=== PATIENT | male | born 1955 | race Caucasian/White ===

== ENCOUNTER → 2017-11-23 11:34 | Outpatient (CLI) | payer OTHER, SELFPAY | PROVIDERS: Family Provider Family Medicine; PCP Family Medicine; Visit Provider Family Medicine | DX: R20.2 Paresthesia of skin (principal); M25.529 Pain in unspecified elbow | CPT/HCPCS: 95886; 95909 ==

== ENCOUNTER → 2018-02-12 07:48 | Outpatient (CLI) | payer OTHER, SELFPAY ==
[2018-02-12 08:56] LABS: Hemoglobin A1C% w Est Avg Glu 6.1 % (4.0-6.0)
[2018-02-12 09:15] LABS: Creatinine Urine Random 142.1 mg/dL
[2018-02-12 09:18] LABS: Microalbumi Creatinin Ratio Ur 4.2 ug/mg CR (<30); Microalbumin Urine Random 0.6 mg/dL (0-1.6)
[2018-02-12 09:22] LABS: Alanine Aminotransferase 46 IU/L (21-72); Albumin 4.5 g/dL (3.5-5.0); Albumin Globulin Ratio 1.8 (1.0-2.8); Alkaline Phosphatase 62 U/L (38-126); Aspartate Aminotransferase 30 IU/L (17-59); Bilirubin Total 0.7 mg/dL (0.2-1.3); Blood Urea Nitrogen 25 mg/dL (9-20); Calcium 9.5 mg/dL (8.4-10.2); Carbon Dioxide 27 mmol/L (22-32); Chloride 104 mmol/L (98-107); Cholesterol 227 mg/dL (140-199); Estimated Glomerular Filt Rate > 60.0 mL/min (>60); Globulin 2.5 g/dL (1.7-4.1); Glucose 151 mg/dL (80-110); HDL Cholesterol 47 mg/dL (40-60); HEMOLYSIS < 15 (0-50); LDL Cholesterol Calculated 144 mg/dL (<100); Potassium 4.7 mmol/L (3.4-5.1); Sodium 140 mmol/L (137-145); Triglycerides 178 mg/dL (35-150)
== END ==
PROVIDERS: PCP Family Medicine; Visit Provider Family Medicine
DX: R73.09 Other abnormal glucose (principal)
CPT/HCPCS: 36415; 80053; 80061; 82043; 82570; 83036

== ENCOUNTER → 2018-02-20 12:38 | Outpatient (CLI) | payer OTHER, SELFPAY ==
--- NOTE | 2018-02-20 | DI.MRI.S_ITS ---
PROCEDURE: MR CERVICAL SPINE WO CON INDICATIONS: HAND NUMBNESS TECHNIQUE: Noncontrast sagittal T1 spin echo and T2 fast spin echo, sagittal STIR, foraminal oblique sagittal T2 fast spin echo, and axial gradient echo or T2 fast spin echo through the cervical spine. COMPARISON: [facility], CT, C-SPINE WITHOUT CONTRAST, 11/16/2012, 9:38. FINDINGS: Image quality: Diagnostic Alignment and Curvature: There is normal bony alignment. Bone Marrow: Marrow demonstrates normal overall signal. Spinal Cord: Visualized spinal cord has normal size and signal. No cerebellar tonsillar herniation. Paraspinous Soft Tissues: No paravertebral masses. Prevertebral soft tissues are normal in thickness. C2-C3: The disc height is well-preserved. Loss of disc signal is seen at this level. A mild degree of generalized disc osteophyte complex is seen. There is moderate left-sided and mild to moderate right-sided neural foraminal narrowing seen. Minimal central canal narrowing is seen. C3-C4: Minimal loss of disc height is seen. Loss of disc signal is seen. Mild to moderate disc osteophyte complex is seen, which is eccentric to the left. Uncovertebral joint hypertrophy is seen at this level. Mild facet joint hypertrophy is seen. There is moderate to severe left-sided and moderate right-sided neural foraminal narrowing seen. Moderate central canal narrowing is seen. C4-C5: There is minimal loss of disc height. Loss of disc signal is seen at this level. Mild to moderate disc osteophyte complex is seen. There is moderate bilateral neural foraminal narrowing seen, right greater than left. Moderate central canal narrowing is seen, with mass effect upon the ventral spinal cord. C5-C6: Moderate loss of disc height is seen. Loss of disc signal is seen. At least moderate disc osteophyte complex is seen. Uncovertebral joint hypertrophy is seen at this level. Mild facet joint hypertrophy is seen. There is moderate to severe bilateral neural foraminal narrowing seen, right worse than left. Moderate to severe central canal narrowing is seen, with associated mass effect upon the ventral spinal cord, as on series 5 image 28. C6-C7: Moderate loss of disc height is seen. Loss of disc signal is seen. At least moderate disc osteophyte complex is seen. Uncovertebral joint hypertrophy is seen at this level. Mild facet joint hypertrophy is seen. There is moderate to severe bilateral neural foraminal narrowing seen, left worse than right. Moderate to severe central canal narrowing is seen, with associated mass effect upon the ventral spinal cord. C7-T1: Mild loss of disc height is seen. Loss of disc signal is seen. Mild to moderate disc osteophyte complex is seen. There is moderate bilateral neural foraminal narrowing seen, right greater than left. Mild central canal narrowing is seen. IMPRESSION: Multiple levels of cervical spine degenerative change are seen, which are most prominent at the C5-C6 and the C6-C7 levels. Dictated by: Eulalio Kellogg M.D. on 02/20/2018 at 13:48 Approved by: Eulalio Kellogg M.D. on 02/20/2018 at 13:54
== END ==
PROVIDERS: Family Provider Family Medicine; PCP Family Medicine; Visit Provider Family Medicine
DX: M47.812 Spondylosis without myelopathy or radiculopathy, cervical region (principal); R20.0 Anesthesia of skin
CPT/HCPCS: 72141

== ENCOUNTER → 2018-03-07 10:37 | Outpatient (CLI) | payer OTHER, SELFPAY ==
--- NOTE | 2018-03-07 | DI.RAD.S_ITS ---
PROCEDURE: XR FINGER RT MIN 2V INDICATIONS: RIGHT FIRST FINGERT PAIN INDEX FINGER TECHNIQUE: AP hand, 2 views of the second finger(s) acquired. COMPARISON: None. FINDINGS: Bones: No fractures or dislocations. No suspicious bony lesions. Soft tissues: No suspicious soft tissue calcifications. IMPRESSION: No trauma found. 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 Dictated by: Theo Garcia M.D. on 03/07/2018 at 12:13 Approved by: Theo Garcia M.D. on 03/07/2018 at 12:13
== END ==
PROVIDERS: Family Provider Family Medicine; PCP Family Medicine; Visit Provider Family Medicine
DX: M79.644 Pain in right finger(s) (principal); M19.041 Primary osteoarthritis, right hand
CPT/HCPCS: 73140

== ENCOUNTER 2018-11-07 16:00 | Outpatient (RCR) | payer OTHER, SELFPAY ==
--- NOTE | 2018-09-04 16:45 | PT.OPPOC ---
Current Diagnoses Pain in unspecified joint (09/04/18) Stiffness of unspecified joint, not elsewhere classified (09/04/18) Spinal stenosis, cervical region (09/04/18) Radiculopathy, cervical region (09/04/18) Pain in arm, unspecified (09/04/18) Provider Visit Care Team Role Provider Type Dimitri Guerra MD Family Provider Physician Primary Care Provider Specialty: Family Practice Address: [facility] [place], [address] Email: Heath Spann MD Attending Provider Non-Staff Specialty: Neurology Address: [address] [place], [address] Email: Plan Of Care PT-OP-T Assessment and Plan Start: 09/06/18 12:47 Freq: Status: Active Protocol: Document 09/04/18 16:00 DCW (Rec: 09/06/18 13:17 DCW [id number]) Physical Therapy Assessment Rehab Potential Rehabilitation Potential Good Evaluation Complexity Number of Personal Factors/Comorbidities 1-2 Number of Body Systems Impaired 3 Clinical Presentation at Evaluation Stable Impairments Impairments Functional Mobility Pain Posture ROM Soft Tissue Mobility Tone Goals Three Impairment Pt has restricted pain-free cervical ROM Junior Underwriter Goal (LTG) Pt pain-free cervical ROM to improve to 70? with both flexion and extension, as well as 70? rotation bilaterally LTG Duration 11/05/18 Two Impairment Pt has been dropping tools at work Short Term Goal (STG) Pt to report no dropping of tools for two weeks at work due to decreased radicular symptoms STG Duration 10/05/18 One Impairment Pt does not have an appropriate home exercise program Short Term Goal (STG) Pt to be independent and compliant with an appropriate HEP STG Duration 10/05/18 Assessment Summary Assessment Pt presents with a largely negative cervical examination, no notable positive special tests, and unable to reproduce radicular symptoms in the clinic today. Pt did report relief from manual traction, and to exhibit tone through his upper trap and scalenes, R >L, as well as his suboccipitals, L>R. Pt should benefit from skilled therapy focusing on improving flexibility and decreasing muscle tone, as well as improving pain-free cervical ROM and manual traction Physical Therapy Plan Frequency and Duration Frequency of Treatment 2x/Week Duration of Treatment 10 weeks Plan of Care Start Date 09/04/18 Plan of Care End Date 11/13/18 Therapeutic Interventions Therapeutic Interventions Home Exercise Program Joint Mobilizations Manual Therapy Neuromuscular Re-education Patient/Caregiver Education Self-Care/Home Management Soft Tissue Mobilization Therapeutic Activities Therapeutic Exercises Modalities Cold Pack/Ice Massage Electric Stimulation Hot Packs Traction- Mechanical Ultrasound Next Visit Focus/Plan Next Note Type Treatment Note Next Visit Plan Stretching, STM, Manual traction, possible trial of mechanical traction Plan of Care Dates Plan of Care Start Date 09/04/18 Plan of Care End Date 11/13/18 Please Sign and Return: I have reviewed this Plan of Care and certify that the skilled therapy services above are required to meet the patient?s needs. Physician Signature Date Printed Name and Credentials Clinical Instructor Signature Printed Name and Credentials
--- NOTE | 2018-09-04 16:45 | PT.OIE ---
Current Diagnoses Pain in unspecified joint (09/04/18) Stiffness of unspecified joint, not elsewhere classified (09/04/18) Spinal stenosis, cervical region (09/04/18) Radiculopathy, cervical region (09/04/18) Pain in arm, unspecified (09/04/18) Provider Visit Care Team Role Provider Type Dimitri Guerra MD Family Provider Physician Primary Care Provider Specialty: Family Practice Address: [facility] [place], [address] Email: Heath Spann MD Attending Provider Non-Staff Specialty: Neurology Address: [address] [place], [address] Email: Physical Therapy Initial Evaluation PT-OP-A Visit Information Start: 09/06/18 12:47 Freq: Status: Active Protocol: Document 09/04/18 16:00 DCW (Rec: 09/06/18 13:17 DC [id number]) Out-Patient Physical Therapy Visit Information Visit Information Visit Type Initial Evaluation Visit Start Time 16:00 Visit Stop Time 16:45 Total Visit Minutes 45 Visit Number 1 Number of CONTRACT IMPLEMENTATION ANALYST Visits 0 Evaluation Information Evaluation Date 09/04/18 PT-OP-B Current Condition Start: 09/06/18 12:47 Freq: Status: Active Protocol: Document 09/04/18 16:00 DCW (Rec: 09/06/18 13:17 DC [id number]) Current Condition History of Current Condition Onset Date 1 year history Current Complaints neck and radicular left arm pain History of Current Condition Pt is a 62 year old male complaining of a one year history of cervical pain, with additional radicular pain down his arms bilaterally. Pt notes that he had been wearing a radio vest at work, which had a small plastic piece which put pressure on his neck right where his pain was, but after taking the plastic piece off, and then stopped wearing the vest entirely, there has still been no change . Pt notes the pain is entirely random, and it comes and goes with no apparent cause. Pt also reports there has been random spasm in his pecs, and he is unable to do anything about it other than just wait until it goes away. Pt does admit he has been dropping items more than normal, but is not actually limited with his job. Prior Treatments and Tests Cervical X-ray: Multiple levels of cervical spine degenerative change are seen, which are most prominent at the C5-C6 and the C6-C7 levels. per Eulailo Kellogg M.D. on 02/20 EMG: Normal study. Findings are not suggestive of a left median nerve lesion at the wrist, a left ulnar nerve lesion at the wrist or elbow no of an acute or chronic C5 through T1 motor nerve root lesion. per Kianna Comer , PT, DSc, ECS on 11/23/17 Treatment Goals Patient/Caregiver Goals Pt's goal is to reduce pain and limit radicular symptoms Prior Functional Status Baseline Function- ADL's Independent Baseline Function- Mobility Independent Current Functional Impairments (Reported) Functional Limitations- Other Increased dropping of items due to radicular symptoms PT-OP-C Subjective Start: 09/06/18 12:47 Freq: Status: Active Protocol: Document 09/04/18 16:00 DCW (Rec: 09/06/18 13:17 [facility] [id number]) OP-PT Pain Assessment Pain Assessment Grid Paper Pain Assessment Grid Completed Yes Location Cervical Spine Intensity 3 Scale Used Numeric (1 - 10) Radiating Location radicular pain into forearm PT-OP-E Functional Tests Start: 09/06/18 12:47 Freq: Status: Active Protocol: Document 09/04/18 16:00 DCW (Rec: 09/06/18 13:17 [facility] [id number]) Functional Tests Apley's Scratch Test Action 1- Left WNL Action 1- Right WNL Action 2- Left WNL Action 2- Right WNL Action 3- Left WNL Action 3- Right WNL PT-OP-F Manual Assessment Start: 09/06/18 12:47 Freq: Status: Active Protocol: Document 09/04/18 16:00 DCW (Rec: 09/06/18 13:17 [facility] [id number]) Manual Assessments Soft Tissue Assessment Soft Tissue Mobility Assessment Moderate tone and tenderness to palpation 2/4: Pain with wincing - left suboccipitals Severe tone and tenderness to palpation 3/4: Wincing and withdraw - right upper trap, right pec Joint Mobility Assessment Joint Mobility Assessment No increased complaints of tenderness or radicular pain with palpation of C3-T2 PT-OP-K Range of Motion Start: 09/06/18 12:47 Freq: Status: Active Protocol: Document 09/04/18 16:00 DCW (Rec: 09/06/18 13:17 [facility] [id number]) Cervical Spine Range of Motion Cervical Spine Active Degrees Testing Position Sitting Flexion 50 Extension 40 Rotation Left 60 Rotation Right 50 Lateral Flexion Left 30 Lateral Flexion Right 30 ROM Limitations Soft Tissue Tightness Pain Comments Pain at end-range of right rotation, right sidebending, and cervical extension Shoulder Goniometric Range of Motion Shoulder Right Active Shoulder ROM WFL Yes Left Active Shoulder ROM WFL Yes PT-OP-L Special Tests Start: 09/06/18 12:47 Freq: Status: Active Protocol: Document 09/04/18 16:00 DCW (Rec: 09/06/18 13:17 [facility] [id number]) Special Tests Cervical Spine Special Tests Upper Limb Tension Test Test Results Negative Traction Test Results Relieves pain Spurling's Test Test Results Negative Slump Test Results Negative Foraminal Compression Test Results Negative Alar Ligament Test Results Negative PT-OP-Q Treatments Start: 09/06/18 12:47 Freq: Status: Active Protocol: Document 09/04/18 16:00 DCW (Rec: 09/06/18 13:17 [facility] [id number]) Therapeutic Exercises Sitting Exercises Posterior Scalene Sitting Exercise Name Lateral flexion with cervical rotation (look down). Side bilateral Upper Trap Sitting Exercise Name Lateral flexion stretch Side bilateral PT-OP-T Assessment and Plan Start: 09/06/18 12:47 Freq: Status: Active Protocol: Document 09/04/18 16:00 DCW (Rec: 09/06/18 13:17 [facility] [id number]) Physical Therapy Assessment Rehab Potential Rehabilitation Potential Good Evaluation Complexity Number of Personal Factors/Comorbidities 1-2 Number of Body Systems Impaired 3 Clinical Presentation at Evaluation Stable Impairments Impairments Functional Mobility Pain Posture ROM Soft Tissue Mobility Tone Goals Three Impairment Pt has restricted pain-free cervical ROM Alf Goal (LTG) Pt pain-free cervical ROM to improve to 70? with both flexion and extension, as well as 70? rotation bilaterally LTG Duration 11/05/18 Two Impairment Pt has been dropping tools at work Short Term Goal (STG) Pt to report no dropping of tools for two weeks at work due to decreased radicular symptoms STG Duration 10/05/18 One Impairment Pt does not have an appropriate home exercise program Short Term Goal (STG) Pt to be independent and compliant with an appropriate HEP STG Duration 10/05/18 Assessment Summary Assessment Pt presents with a largely negative cervical examination, no notable positive special tests, and unable to reproduce radicular symptoms in the clinic today. Pt did report relief from manual traction, and to exhibit tone through his upper trap and scalenes, R >L, as well as his suboccipitals, L>R. Pt should benefit from skilled therapy focusing on improving flexibility and decreasing muscle tone, as well as improving pain-free cervical ROM and manual traction Physical Therapy Plan Frequency and Duration Frequency of Treatment 2x/Week Duration of Treatment 10 weeks Plan of Care Start Date 09/04/18 Plan of Care End Date 11/13/18 Therapeutic Interventions Therapeutic Interventions Home Exercise Program Joint Mobilizations Manual Therapy Neuromuscular Re-education Patient/Caregiver Education Self-Care/Home Management Soft Tissue Mobilization Therapeutic Activities Therapeutic Exercises Modalities Cold Pack/Ice Massage Electric Stimulation Hot Packs Traction- Mechanical Ultrasound Next Visit Focus/Plan Next Note Type Treatment Note Next Visit Plan Stretching, STM, Manual traction, possible trial of mechanical traction
--- NOTE | 2018-09-06 15:14 | PT.OTN ---
Current Diagnoses Pain in unspecified joint (09/06/18) Stiffness of unspecified joint, not elsewhere classified (09/06/18) Spinal stenosis, cervical region (09/06/18) Radiculopathy, cervical region (09/06/18) Pain in arm, unspecified (09/06/18) Physical Therapy Treatment Note PT-OP-A Visit Information Start: 09/06/18 12:47 Freq: Status: Active Protocol: Document 09/06/18 13:45 GGD (Rec: 09/06/18 15:14 GGD [id number]) Out-Patient Physical Therapy Visit Information Visit Information Visit Type Treatment Note Visit Start Time 13:45 Visit Stop Time 14:30 Total Visit Minutes 45 Visit Number 2 Number of RESTORATIVE CARE TECHNICIAN Visits 1 Evaluation Information Evaluation Date 09/04/18 PT-OP-B Current Condition Start: 09/06/18 12:47 Freq: Status: Active Protocol: Document 09/04/18 16:00 DCW (Rec: 09/06/18 13:17 DCW [id number]) Current Condition History of Current Condition Onset Date 1 year history Current Complaints neck and radicular left arm pain History of Current Condition Pt is a 62 year old male complaining of a one year history of cervical pain, with additional radicular pain down his arms bilaterally. Pt notes that he had been wearing a radio vest at work, which had a small plastic piece which put pressure on his neck right where his pain was, but after taking the plastic piece off, and then stopped wearing the vest entirely, there has still been no change . Pt notes the pain is entirely random, and it comes and goes with no apparent cause. Pt also reports there has been random spasm in his pecs, and he is unable to do anything about it other than just wait until it goes away. Pt does admit he has been dropping items more than normal, but is not actually limited with his job. Prior Treatments and Tests Cervical X-ray: Multiple levels of cervical spine degenerative change are seen, which are most prominent at the C5-C6 and the C6-C7 levels. per Eulalio Kellogg M.D. on 02/20 EMG: Normal study. Findings are not suggestive of a left median nerve lesion at the wrist, a left ulnar nerve lesion at the wrist or elbow no of an acute or chronic C5 through T1 motor nerve root lesion. per Kianna Comer , PT, DSc, ECS on 11/23/17 Treatment Goals Patient/Caregiver Goals Pt's goal is to reduce pain and limit radicular symptoms Prior Functional Status Baseline Function- ADL's Independent Baseline Function- Mobility Independent Current Functional Impairments (Reported) Functional Limitations- Other Increased dropping of items due to radicular symptoms PT-OP-C Subjective Start: 09/06/18 12:47 Freq: Status: Active Protocol: Document 09/06/18 13:45 GGD (Rec: 09/06/18 15:14 GGD [id number]) OP-PT Subjective Patient Comments Patient Comments PT states that he was sore after the last visit, but feels better today. PT-OP-E Functional Tests Start: 09/06/18 12:47 Freq: Status: Active Protocol: Document 09/04/18 16:00 DCW (Rec: 09/06/18 13:17 DCW [id number]) Functional Tests Apley's Scratch Test Action 1- Left WNL Action 1- Right WNL Action 2- Left WNL Action 2- Right WNL Action 3- Left WNL Action 3- Right WNL PT-OP-F Manual Assessment Start: 09/06/18 12:47 Freq: Status: Active Protocol: Document 09/04/18 16:00 DCW (Rec: 09/06/18 13:17 DCW [id number]) Manual Assessments Soft Tissue Assessment Soft Tissue Mobility Assessment Moderate tone and tenderness to palpation 2/4: Pain with wincing - left suboccipitals Severe tone and tenderness to palpation 3/4: Wincing and withdraw - right upper trap, right pec Joint Mobility Assessment Joint Mobility Assessment No increased complaints of tenderness or radicular pain with palpation of C3-T2 PT-OP-K Range of Motion Start: 09/06/18 12:47 Freq: Status: Active Protocol: Document 09/04/18 16:00 DCW (Rec: 09/06/18 13:17 DCW [id number]) Cervical Spine Range of Motion Cervical Spine Active Degrees Testing Position Sitting Flexion 50 Extension 40 Rotation Left 60 Rotation Right 50 Lateral Flexion Left 30 Lateral Flexion Right 30 ROM Limitations Soft Tissue Tightness Pain Comments Pain at end-range of right rotation, right sidebending, and cervical extension Shoulder Goniometric Range of Motion Shoulder Right Active Shoulder ROM WFL Yes Left Active Shoulder ROM WFL Yes PT-OP-L Special Tests Start: 09/06/18 12:47 Freq: Status: Active Protocol: Document 09/04/18 16:00 DCW (Rec: 09/06/18 13:17 DCW [id number]) Special Tests Cervical Spine Special Tests Upper Limb Tension Test Test Results Negative Traction Test Results Relieves pain Spurling's Test Test Results Negative Slump Test Results Negative Foraminal Compression Test Results Negative Alar Ligament Test Results Negative PT-OP-Q Treatments Start: 09/06/18 12:47 Freq: Status: Active Protocol: Document 09/06/18 13:45 GGD (Rec: 09/06/18 15:14 GGD [id number]) Therapeutic Exercises Sitting Exercises Posterior Scalene Sitting Exercise Name Lateral flexion with cervical rotation (look down). Side bilateral Upper Trap Sitting Exercise Name Lateral flexion stretch Side bilateral Manual Therapy Treatment Soft Tissue Mobilization UT, Lev scap, Body Location UT, lev scap, scalene Mobilization Type Myofascial Release Sustained Pressure Intensity/Depth Moderate Manual Traction C/S Body Position Hooklying Reps/Duration 5 PT-OP-R Modalities Start: 09/06/18 12:47 Freq: Status: Active Protocol: Document 09/06/18 13:45 GGD (Rec: 09/06/18 15:14 GGD [id number]) Spinal Traction Traction Treatment c/s Method Mechanical Patient Position Hooklying Force Applied (Pounds) 10 Duration of Treatment (Minutes) 10 Ultrasound Therapy Treatment UT Treatment Duration (minutes) 8 Patient Position Prone Coupling Medium Ultrasound Gel Applicator Size (cm2) 5 Frequency Setting (mHz) 1 Mode Setting Continuous Duty Cycle 100% Intensity Setting (w/cm2) 1.5 PT-OP-T Assessment and Plan Start: 09/06/18 12:47 Freq: Status: Active Protocol: Document 09/06/18 13:45 GGD (Rec: 09/06/18 15:14 GGD [id number]) Physical Therapy Assessment Assessment Summary Assessment Pt had decrease C/O numbness with traction. He need mod cues for stretching technique. He had mild tenderness with STM. Physical Therapy Plan Frequency and Duration Frequency of Treatment 2x/Week Duration of Treatment 10 weeks Plan of Care Start Date 09/04/18 Plan of Care End Date 11/13/18 Next Visit Focus/Plan Next Note Type Treatment Note Next Visit Plan Stretching, STM, Manual traction, asses tolerance to mechanical traction
--- NOTE | 2018-10-02 12:25 | PT.OTN ---
Current Diagnoses Pain in unspecified joint (10/02/18) Stiffness of unspecified joint, not elsewhere classified (10/02/18) Spinal stenosis, cervical region (10/02/18) Radiculopathy, cervical region (10/02/18) Pain in arm, unspecified (10/02/18) Physical Therapy Treatment Note PT-OP-A Visit Information Start: 09/06/18 12:47 Freq: Status: Active Protocol: Document 10/02/18 12:18 HH (Rec: 10/02/18 12:24 HH [email or web address]) Out-Patient Physical Therapy Visit Information Visit Information Visit Type Treatment Note Visit Start Time 10:42 Visit Stop Time 11:20 Total Visit Minutes 38 Visit Number 3 Number of FRONT OFFICE MANAGER Visits 0 PT-OP-B Current Condition Start: 09/06/18 12:47 Freq: Status: Active Protocol: Document 09/04/18 16:00 DCW (Rec: 09/06/18 13:17 DCW [id number]) Current Condition History of Current Condition Onset Date 1 year history Current Complaints neck and radicular left arm pain History of Current Condition Pt is a 62 year old male complaining of a one year history of cervical pain, with additional radicular pain down his arms bilaterally. Pt notes that he had been wearing a radio vest at work, which had a small plastic piece which put pressure on his neck right where his pain was, but after taking the plastic piece off, and then stopped wearing the vest entirely, there has still been no change . Pt notes the pain is entirely random, and it comes and goes with no apparent cause. Pt also reports there has been random spasm in his pecs, and he is unable to do anything about it other than just wait until it goes away. Pt does admit he has been dropping items more than normal, but is not actually limited with his job. Prior Treatments and Tests Cervical X-ray: Multiple levels of cervical spine degenerative change are seen, which are most prominent at the C5-C6 and the C6-C7 levels. per Eulalio Kellogg M.D. on 02/20 EMG: Normal study. Findings are not suggestive of a left median nerve lesion at the wrist, a left ulnar nerve lesion at the wrist or elbow no of an acute or chronic C5 through T1 motor nerve root lesion. per Kianna Comer , PT, DSc, ECS on 11/23/17 Treatment Goals Patient/Caregiver Goals Pt's goal is to reduce pain and limit radicular symptoms Prior Functional Status Baseline Function- ADL's Independent Baseline Function- Mobility Independent Current Functional Impairments (Reported) Functional Limitations- Other Increased dropping of items due to radicular symptoms PT-OP-C Subjective Start: 09/06/18 12:47 Freq: Status: Active Protocol: Document 10/02/18 12:24 HH (Rec: 10/02/18 12:25 HH [email or web address]) OP-PT Subjective Patient Comments Patient Comments I was in vacation for couple weeks. Im doing about the same but i did my ex occasionally. Patient Reported Progress Same PT-OP-E Functional Tests Start: 09/06/18 12:47 Freq: Status: Active Protocol: Document 09/04/18 16:00 DCW (Rec: 09/06/18 13:17 DCW [id number]) Functional Tests Apley's Scratch Test Action 1- Left WNL Action 1- Right WNL Action 2- Left WNL Action 2- Right WNL Action 3- Left WNL Action 3- Right WNL PT-OP-F Manual Assessment Start: 09/06/18 12:47 Freq: Status: Active Protocol: Document 09/04/18 16:00 DCW (Rec: 09/06/18 13:17 DCW [id number]) Manual Assessments Soft Tissue Assessment Soft Tissue Mobility Assessment Moderate tone and tenderness to palpation 2/4: Pain with wincing - left suboccipitals Severe tone and tenderness to palpation 3/4: Wincing and withdraw - right upper trap, right pec Joint Mobility Assessment Joint Mobility Assessment No increased complaints of tenderness or radicular pain with palpation of C3-T2 PT-OP-K Range of Motion Start: 09/06/18 12:47 Freq: Status: Active Protocol: Document 09/04/18 16:00 DCW (Rec: 09/06/18 13:17 DCW [id number]) Cervical Spine Range of Motion Cervical Spine Active Degrees Testing Position Sitting Flexion 50 Extension 40 Rotation Left 60 Rotation Right 50 Lateral Flexion Left 30 Lateral Flexion Right 30 ROM Limitations Soft Tissue Tightness Pain Comments Pain at end-range of right rotation, right sidebending, and cervical extension Shoulder Goniometric Range of Motion Shoulder Right Active Shoulder ROM WFL Yes Left Active Shoulder ROM WFL Yes PT-OP-L Special Tests Start: 09/06/18 12:47 Freq: Status: Active Protocol: Document 09/04/18 16:00 DCW (Rec: 09/06/18 13:17 DCW [id number]) Special Tests Cervical Spine Special Tests Upper Limb Tension Test Test Results Negative Traction Test Results Relieves pain Spurling's Test Test Results Negative Slump Test Results Negative Foraminal Compression Test Results Negative Alar Ligament Test Results Negative PT-OP-Q Treatments Start: 09/06/18 12:47 Freq: Status: Active Protocol: Document 10/02/18 12:18 HH (Rec: 10/02/18 12:24 HH [email or web address]) Therapeutic Exercises Supine Exercises supine t/s extension Side bilateral Comments foam roll extension Prone Exercises prayer stretch Prone Exercise Name elbow on table in quadruped position Equipment Used table Comments t/s mobilization in extension and shd flexion Sitting Exercises self cervical PROM Sitting Exercise Name cervical rotation Side bilateral Equipment Used towel Reps/Minutes 5 mins [place] pulleys Side bilateral Reps/Minutes 5 mins Comments for full shd ROM Posterior Scalene Sitting Exercise Name Lateral flexion with cervical rotation (look down). Side bilateral Upper Trap Sitting Exercise Name Lateral flexion stretch Side bilateral Manual Therapy Treatment Soft Tissue Mobilization UT, Lev scap, Body Location UT, lev scap, scalene Mobilization Type Myofascial Release Sustained Pressure Intensity/Depth Moderate Manual Traction C/S Body Position Hooklying Reps/Duration 5 PT-OP-R Modalities Start: 09/06/18 12:47 Freq: Status: Active Protocol: Document 09/06/18 13:45 GGD (Rec: 09/06/18 15:14 GGD [email or web address]) Spinal Traction Traction Treatment c/s Method Mechanical Patient Position Hooklying Force Applied (Pounds) 10 Duration of Treatment (Minutes) 10 Ultrasound Therapy Treatment UT Treatment Duration (minutes) 8 Patient Position Prone Coupling Medium Ultrasound Gel Applicator Size (cm2) 5 Frequency Setting (mHz) 1 Mode Setting Continuous Duty Cycle 100% Intensity Setting (w/cm2) 1.5 PT-OP-T Assessment and Plan Start: 09/06/18 12:47 Freq: Status: Active Protocol: Document 10/02/18 12:18 HH (Rec: 08/20/19 12:24 HH [email or web address]) Physical Therapy Assessment Assessment Summary Assessment Pt had decrease C/O numbness with traction. Pt also reports decreased pinching pain at T1 /T2 during cervical extension after T/S mob in extension. Pt education on using proper pillow for sleep. Physical Therapy Plan Next Visit Focus/Plan Next Note Type Treatment Note Next Visit Plan review home ex. Stretching, STM, Manual traction, asses tolerance to mechanical traction t/s spine extension
--- NOTE | 2018-10-04 16:00 | PT.OTN ---
Current Diagnoses Pain in unspecified joint (10/04/18) Stiffness of unspecified joint, not elsewhere classified (10/04/18) Spinal stenosis, cervical region (10/04/18) Radiculopathy, cervical region (10/04/18) Pain in arm, unspecified (10/04/18) Physical Therapy Treatment Note PT-OP-A Visit Information Start: 09/06/18 12:47 Freq: Status: Active Protocol: Document 10/04/18 13:03 HH (Rec: 10/04/18 15:59 HH [email or web address]) Out-Patient Physical Therapy Visit Information Visit Information Visit Type Treatment Note Visit Start Time 13:03 Visit Stop Time 13:48 Total Visit Minutes 45 Visit Number 4 Number of INCLUSION SPECIAL EDUCATOR Visits 0 PT-OP-B Current Condition Start: 09/06/18 12:47 Freq: Status: Active Protocol: Document 09/04/18 16:00 DCW (Rec: 09/06/18 13:17 DCW [id number]) Current Condition History of Current Condition Onset Date 1 year history Current Complaints neck and radicular left arm pain History of Current Condition Pt is a 62 year old male complaining of a one year history of cervical pain, with additional radicular pain down his arms bilaterally. Pt notes that he had been wearing a radio vest at work, which had a small plastic piece which put pressure on his neck right where his pain was, but after taking the plastic piece off, and then stopped wearing the vest entirely, there has still been no change . Pt notes the pain is entirely random, and it comes and goes with no apparent cause. Pt also reports there has been random spasm in his pecs, and he is unable to do anything about it other than just wait until it goes away. Pt does admit he has been dropping items more than normal, but is not actually limited with his job. Prior Treatments and Tests Cervical X-ray: Multiple levels of cervical spine degenerative change are seen, which are most prominent at the C5-C6 and the C6-C7 levels. per Eulalio Kellogg M.D. on 02/20 EMG: Normal study. Findings are not suggestive of a left median nerve lesion at the wrist, a left ulnar nerve lesion at the wrist or elbow no of an acute or chronic C5 through T1 motor nerve root lesion. per Kianna Comer , PT, DSc, ECS on 11/23/17 Treatment Goals Patient/Caregiver Goals Pt's goal is to reduce pain and limit radicular symptoms Prior Functional Status Baseline Function- ADL's Independent Baseline Function- Mobility Independent Current Functional Impairments (Reported) Functional Limitations- Other Increased dropping of items due to radicular symptoms PT-OP-C Subjective Start: 09/06/18 12:47 Freq: Status: Active Protocol: Document 10/04/18 13:03 HH (Rec: 10/04/18 15:59 HH [email or web address]) OP-PT Subjective Patient Comments Patient Comments My arm and back felt quite stretch out after last session . But i dont have any neck pain now. Patient Reported Progress Improving PT-OP-E Functional Tests Start: 09/06/18 12:47 Freq: Status: Active Protocol: Document 09/04/18 16:00 DCW (Rec: 09/06/18 13:17 DCW [id number]) Functional Tests Apley's Scratch Test Action 1- Left WNL Action 1- Right WNL Action 2- Left WNL Action 2- Right WNL Action 3- Left WNL Action 3- Right WNL PT-OP-F Manual Assessment Start: 09/06/18 12:47 Freq: Status: Active Protocol: Document 09/04/18 16:00 DCW (Rec: 09/06/18 13:17 DCW [id number]) Manual Assessments Soft Tissue Assessment Soft Tissue Mobility Assessment Moderate tone and tenderness to palpation 2/4: Pain with wincing - left suboccipitals Severe tone and tenderness to palpation 3/4: Wincing and withdraw - right upper trap, right pec Joint Mobility Assessment Joint Mobility Assessment No increased complaints of tenderness or radicular pain with palpation of C3-T2 PT-OP-K Range of Motion Start: 09/06/18 12:47 Freq: Status: Active Protocol: Document 09/04/18 16:00 DCW (Rec: 09/06/18 13:17 DCW [id number]) Cervical Spine Range of Motion Cervical Spine Active Degrees Testing Position Sitting Flexion 50 Extension 40 Rotation Left 60 Rotation Right 50 Lateral Flexion Left 30 Lateral Flexion Right 30 ROM Limitations Soft Tissue Tightness Pain Comments Pain at end-range of right rotation, right sidebending, and cervical extension Shoulder Goniometric Range of Motion Shoulder Right Active Shoulder ROM WFL Yes Left Active Shoulder ROM WFL Yes PT-OP-L Special Tests Start: 09/06/18 12:47 Freq: Status: Active Protocol: Document 09/04/18 16:00 DCW (Rec: 09/06/18 13:17 DCW [id number]) Special Tests Cervical Spine Special Tests Upper Limb Tension Test Test Results Negative Traction Test Results Relieves pain Spurling's Test Test Results Negative Slump Test Results Negative Foraminal Compression Test Results Negative Alar Ligament Test Results Negative PT-OP-Q Treatments Start: 09/06/18 12:47 Freq: Status: Active Protocol: Document 10/04/18 13:03 HH (Rec: 10/04/18 15:59 HH [email or web address]) Therapeutic Exercises Prone Exercises prayer stretch Prone Exercise Name elbow on table in quadruped position Equipment Used table Reps/Minutes 10 x2 Comments t/s mobilization in extension and shd flexion Sidelying Exercises open book Side bilateral Comments cues on t/s rotation Sitting Exercises [place] pulleys Side bilateral Reps/Minutes 5 mins Comments for full shd ROM FL and ABD Standing Exercises wall [place] Side bilateral Reps/Minutes 8 x 2 Comments full shd AROM, next to wall shoulder ext Side bilateral Equipment Used PVC pipe Reps/Minutes 10 x2 shoulder press Side bilateral Equipment Used PVC pipe Reps/Minutes 10 x2 around the [place] Side bilateral Equipment Used PVC pipe Reps/Minutes 10 x 2 Comments clockwise and anticlockwise Manual Therapy Treatment Soft Tissue Mobilization UT, Lev scap, Body Location UT, lev scap, scalene Mobilization Type Myofascial Release Sustained Pressure Intensity/Depth Moderate Comments with R cervical rotation Nerve Glides median nerve glide Body Position Standing Reps/Duration 10secs x 5 Comments with cervical lateral flexion for HEP as well PT-OP-R Modalities Start: 09/06/18 12:47 Freq: Status: Active Protocol: Document 09/06/18 13:45 GGD (Rec: 09/06/18 15:14 GGD [email or web address]) Spinal Traction Traction Treatment c/s Method Mechanical Patient Position Hooklying Force Applied (Pounds) 10 Duration of Treatment (Minutes) 10 Ultrasound Therapy Treatment UT Treatment Duration (minutes) 8 Patient Position Prone Coupling Medium Ultrasound Gel Applicator Size (cm2) 5 Frequency Setting (mHz) 1 Mode Setting Continuous Duty Cycle 100% Intensity Setting (w/cm2) 1.5 PT-OP-T Assessment and Plan Start: 09/06/18 12:47 Freq: Status: Active Protocol: Document 10/04/18 13:03 (Rec: 10/04/18 15:59 [email or web address]) Physical Therapy Assessment Goals Three Impairment Pt has restricted pain-free cervical ROM Assisted Goal (LTG) Pt pain-free cervical ROM to improve to 70? with both flexion and extension, as well as 70? rotation bilaterally LTG Duration 11/05/18 Two Impairment Pt has been dropping tools at work Short Term Goal (STG) Pt to report no dropping of tools for two weeks at work due to decreased radicular symptoms STG Duration 10/05/18 One Impairment Pt does not have an appropriate home exercise program Short Term Goal (STG) Pt to be independent and compliant with an appropriate HEP STG Duration 10/05/18 Assessment Summary Assessment Pt [place] tx well with focused on T/S mobility and shd mobility . Pt denies pain with cervical extension this session, and he has reduced pain during cervical R rotation after STM. Added median nerve glide against wall to his HEP Physical Therapy Plan Next Visit Focus/Plan Next Note Type Treatment Note Next Visit Plan review median nerve glide HEP cont t/s , shd , cervical mobility, and start scap and cervical strenthening as [place]
--- NOTE | 2018-10-09 17:33 | PT.OTN ---
Current Diagnoses Pain in unspecified joint (10/09/18) Stiffness of unspecified joint, not elsewhere classified (10/09/18) Spinal stenosis, cervical region (10/09/18) Radiculopathy, cervical region (10/09/18) Pain in arm, unspecified (10/09/18) Physical Therapy Treatment Note PT-OP-A Visit Information Start: 09/06/18 12:47 Freq: Status: Active Protocol: Document 10/09/18 16:33 EA (Rec: 10/09/18 16:38 EA [id number]) Out-Patient Physical Therapy Visit Information Visit Information Visit Type Treatment Note Visit Start Time 16:00 Visit Stop Time 16:45 Total Visit Minutes 45 Visit Number 5 PT-OP-B Current Condition Start: 09/06/18 12:47 Freq: Status: Active Protocol: Document 09/04/18 16:00 DCW (Rec: 09/06/18 13:17 DCW [id number]) Current Condition History of Current Condition Onset Date 1 year history Current Complaints neck and radicular left arm pain History of Current Condition Pt is a 62 year old male complaining of a one year history of cervical pain, with additional radicular pain down his arms bilaterally. Pt notes that he had been wearing a radio vest at work, which had a small plastic piece which put pressure on his neck right where his pain was, but after taking the plastic piece off, and then stopped wearing the vest entirely, there has still been no change . Pt notes the pain is entirely random, and it comes and goes with no apparent cause. Pt also reports there has been random spasm in his pecs, and he is unable to do anything about it other than just wait until it goes away. Pt does admit he has been dropping items more than normal, but is not actually limited with his job. Prior Treatments and Tests Cervical X-ray: Multiple levels of cervical spine degenerative change are seen, which are most prominent at the C5-C6 and the C6-C7 levels. per Eulalio Kellogg M.D. on 02/20 EMG: Normal study. Findings are not suggestive of a left median nerve lesion at the wrist, a left ulnar nerve lesion at the wrist or elbow no of an acute or chronic C5 through T1 motor nerve root lesion. per Kianna Armantrout , PT, DSc, ECS on 11/23/17 Treatment Goals Patient/Caregiver Goals Pt's goal is to reduce pain and limit radicular symptoms Prior Functional Status Baseline Function- ADL's Independent Baseline Function- Mobility Independent Current Functional Impairments (Reported) Functional Limitations- Other Increased dropping of items due to radicular symptoms PT-OP-C Subjective Start: 09/06/18 12:47 Freq: Status: Active Protocol: Document 10/09/18 16:33 EA (Rec: 10/09/18 16:38 EA [id number]) OP-PT Subjective Patient Comments Patient Comments My arm and finger does not go away and it bother me at night. PT-OP-E Functional Tests Start: 09/06/18 12:47 Freq: Status: Active Protocol: Document 09/04/18 16:00 DCW (Rec: 09/06/18 13:17 DCW [id number]) Functional Tests Apley's Scratch Test Action 1- Left WNL Action 1- Right WNL Action 2- Left WNL Action 2- Right WNL Action 3- Left WNL Action 3- Right WNL PT-OP-F Manual Assessment Start: 09/06/18 12:47 Freq: Status: Active Protocol: Document 09/04/18 16:00 DCW (Rec: 09/06/18 13:17 DCW [id number]) Manual Assessments Soft Tissue Assessment Soft Tissue Mobility Assessment Moderate tone and tenderness to palpation 2/4: Pain with wincing - left suboccipitals Severe tone and tenderness to palpation 3/4: Wincing and withdraw - right upper trap, right pec Joint Mobility Assessment Joint Mobility Assessment No increased complaints of tenderness or radicular pain with palpation of C3-T2 PT-OP-K Range of Motion Start: 09/06/18 12:47 Freq: Status: Active Protocol: Document 09/04/18 16:00 DCW (Rec: 09/06/18 13:17 DCW [id number]) Cervical Spine Range of Motion Cervical Spine Active Degrees Testing Position Sitting Flexion 50 Extension 40 Rotation Left 60 Rotation Right 50 Lateral Flexion Left 30 Lateral Flexion Right 30 ROM Limitations Soft Tissue Tightness Pain Comments Pain at end-range of right rotation, right sidebending, and cervical extension Shoulder Goniometric Range of Motion Shoulder Right Active Shoulder ROM WFL Yes Left Active Shoulder ROM WFL Yes PT-OP-L Special Tests Start: 09/06/18 12:47 Freq: Status: Active Protocol: Document 09/04/18 16:00 DCW (Rec: 09/06/18 13:17 DCW [id number]) Special Tests Cervical Spine Special Tests Upper Limb Tension Test Test Results Negative Traction Test Results Relieves pain Spurling's Test Test Results Negative Slump Test Results Negative Foraminal Compression Test Results Negative Alar Ligament Test Results Negative PT-OP-Q Treatments Start: 09/06/18 12:47 Freq: Status: Active Protocol: Document 10/09/18 16:33 EA (Rec: 10/09/18 16:38 EA [id number]) Therapeutic Exercises Sidelying Exercises open book Side bilateral Comments cues on t/s rotation Standing Exercises wall [place] Side bilateral Reps/Minutes 8 x 2 Comments full shd AROM, next to wall shoulder ext Side bilateral Equipment Used PVC pipe Reps/Minutes 10 x2 shoulder press Side bilateral Equipment Used PVC pipe Reps/Minutes 10 x2 Manual Therapy Treatment Soft Tissue Mobilization UT, Lev scap, Body Location UT, lev scap, IS,TM/TM Mobilization Type Myofascial Release Sustained Pressure Intensity/Depth Moderate Comments with R cervical rotation PT-OP-R Modalities Start: 09/06/18 12:47 Freq: Status: Active Protocol: Document 09/06/18 13:45 GGD (Rec: 09/06/18 15:14 GGD [email or web address]) Spinal Traction Traction Treatment c/s Method Mechanical Patient Position Hooklying Force Applied (Pounds) 10 Duration of Treatment (Minutes) 10 Ultrasound Therapy Treatment UT Treatment Duration (minutes) 8 Patient Position Prone Coupling Medium Ultrasound Gel Applicator Size (cm2) 5 Frequency Setting (mHz) 1 Mode Setting Continuous Duty Cycle 100% Intensity Setting (w/cm2) 1.5 PT-OP-T Assessment and Plan Start: 09/06/18 12:47 Freq: Status: Active Protocol: Document 10/09/18 16:33 EA (Rec: 10/09/18 16:38 EA [id number]) Physical Therapy Assessment Assessment Summary Assessment Tolerated treatment exercises. Probable myofascial tightness to left IfraSpinatus/TM/TM muscles with muscular twitching. Re-assess possible nerve irritation at posterior cord of the brachial plexus. Physical Therapy Plan Next Visit Focus/Plan Next Note Type Treatment Note Next Visit Plan review median nerve glide HEP cont t/s , shd , cervical mobility, and start scap and cervical strenthening as [place]
--- NOTE | 2018-10-11 17:12 | PT.OTN ---
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 Pt notes that he had been wearing a radio vest at work, which had a small plastic piece which put pressure on his neck right where his pain was, but after taking the plastic piece off, and then stopped wearing the vest entirely, there has still been no change . Pt notes the pain is entirely random, and it comes and goes with no apparent cause. Pt also reports there has been random spasm in his pecs, and he is unable to do anything about it other than just wait until it goes away. Pt does admit he has been dropping items more than normal, but is not actually limited with his job. Prior Treatments and Tests Cervical X-ray: Multiple levels of cervical spine degenerative change are seen, which are most prominent at the C5-C6 and the C6-C7 levels. per Eulalio Kellogg M.D. on 02/20 EMG: Normal study. Findings are not suggestive of a left median nerve lesion at the wrist, a left ulnar nerve lesion at the wrist or elbow no of an acute or chronic C5 through T1 motor nerve root lesion. per Kianna Comer , PT, DSc, ECS on 11/23/17 Treatment Goals Patient/Caregiver Goals Pt's goal is to reduce pain and limit radicular symptoms Prior Functional Status Baseline Function- ADL's Independent Baseline Function- Mobility Independent Current Functional Impairments (Reported) Functional Limitations- Other Increased dropping of items due to radicular symptoms PT-OP-C Subjective Start: 09/06/18 12:47 Freq: Status: Active Protocol: Document 10/11/18 15:15 GGD (Rec: 10/11/18 17:12 GGD [email or web address]) OP-PT Subjective Patient Comments Patient Comments Pt states that his neck is feeling better. PT-OP-E Functional Tests Start: 09/06/18 12:47 Freq: Status: Active Protocol: Document 09/04/18 16:00 DCW (Rec: 09/06/18 13:17 DCW [id number]) Functional Tests Apley's Scratch Test Action 1- Left WNL Action 1- Right WNL Action 2- Left WNL Action 2- Right WNL Action 3- Left WNL Action 3- Right WNL PT-OP-F Manual Assessment Start: 09/06/18 12:47 Freq: Status: Active Protocol: Document 09/04/18 16:00 DCW (Rec: 09/06/18 13:17 DCW [id number]) Manual Assessments Soft Tissue Assessment Soft Tissue Mobility Assessment Moderate tone and tenderness to palpation 2/4: Pain with wincing - left suboccipitals Severe tone and tenderness to palpation 3/4: Wincing and withdraw - right upper trap, right pec Joint Mobility Assessment Joint Mobility Assessment No increased complaints of tenderness or radicular pain with palpation of C3-T2 PT-OP-K Range of Motion Start: 09/06/18 12:47 Freq: Status: Active Protocol: Document 09/04/18 16:00 DCW (Rec: 09/06/18 13:17 DCW [id number]) Cervical Spine Range of Motion Cervical Spine Active Degrees Testing Position Sitting Flexion 50 Extension 40 Rotation Left 60 Rotation Right 50 Lateral Flexion Left 30 Lateral Flexion Right 30 ROM Limitations Soft Tissue Tightness,Pain Comments Pain at end-range of right rotation, right sidebending, and cervical extension Shoulder Goniometric Range of Motion Shoulder Right Active Shoulder ROM WFL Yes Left Active Shoulder ROM WFL Yes PT-OP-L Special Tests Start: 09/06/18 12:47 Freq: Status: Active Protocol: Document 09/04/18 16:00 DCW (Rec: 09/06/18 13:17 DCW [id number]) Special Tests Cervical Spine Special Tests Upper Limb Tension Test Test Results Negative Traction Test Results Relieves pain Spurling's Test Test Results Negative Slump Test Results Negative Foraminal Compression Test Results Negative Alar Ligament Test Results Negative PT-OP-Q Treatments Start: 09/06/18 12:47 Freq: Status: Active Protocol: Document 10/11/18 15:15 GGD (Rec: 10/11/18 17:12 GGD [email or web address]) Therapeutic Exercises Sidelying Exercises open book Side bilateral Comments cues on t/s rotation Sitting Exercises OH pulleys Side bilateral Reps/Minutes 5 mins Comments for full shd ROM FL and ABD Standing Exercises wall [place]ton Side bilateral Reps/Minutes 8 x 2 Comments full shd AROM, next to wall shoulder ext Side bilateral Equipment Used PVC pipe Reps/Minutes 10 x2 shoulder press Side bilateral Equipment Used PVC pipe Reps/Minutes 10 x2 Manual Therapy Treatment Soft Tissue Mobilization UT, Lev scap, Body Location UT, lev scap, IS,TM/TM Mobilization Type Myofascial Release,Sustained Pressure Intensity/Depth Moderate Comments with R cervical rotation Manual Traction C/S Body Position Hooklying Reps/Duration 5 PT-OP-R Modalities Start: 09/06/18 12:47 Freq: Status: Active Protocol: Document 09/06/18 13:45 GGD (Rec: 09/06/18 15:14 GGD [email or web address]) Spinal Traction Traction Treatment c/s Method Mechanical Patient Position Hooklying Force Applied (Pounds) 10 Duration of Treatment (Minutes) 10 Ultrasound Therapy Treatment UT Treatment Duration (minutes) 8 Patient Position Prone Coupling Medium Ultrasound Gel Applicator Size (cm2) 5 Frequency Setting (mHz) 1 Mode Setting Continuous Duty Cycle 100% Intensity Setting (w/cm2) 1.5 PT-OP-T Assessment and Plan Start: 09/06/18 12:47 Freq: Status: Active Protocol: Document 10/11/18 15:15 GGD (Rec: 10/11/18 17:12 GGD [email or web address]) Physical Therapy Assessment Assessment Summary Assessment Pt had good tolerance to exercises. He had increase in tension of left T/S and UT muscles. Physical Therapy Plan Frequency and Duration Frequency of Treatment 2x/Week Duration of Treatment 10 weeks Plan of Care Start Date 09/04/18 Plan of Care End Date 11/13/18 Next Visit Focus/Plan Next Note Type Treatment Note Next Visit Plan cont t/s , shd , cervical mobility, and start scap and cervical strenthening as chelsea
--- NOTE | 2018-10-16 12:21 | PT.OTN ---
Current Diagnoses Pain in unspecified joint (10/16/18) Stiffness of unspecified joint, not elsewhere classified (10/16/18) Spinal stenosis, cervical region (10/16/18) Radiculopathy, cervical region (10/16/18) Pain in arm, unspecified (10/16/18) Physical Therapy Treatment Note PT-OP-A Visit Information Start: 09/06/18 12:47 Freq: Status: Active Protocol: Document 10/16/18 11:25 HH (Rec: 10/16/18 12:21 HH [email or web address]) Out-Patient Physical Therapy Visit Information Visit Information Visit Type Treatment Note Visit Start Time 11:25 Visit Stop Time 12:06 Total Visit Minutes 41 Visit Number 7 Number of OUTBOARD MOTORS 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 Pt notes that he had been wearing a radio vest at work, which had a small plastic piece which put pressure on his neck right where his pain was, but after taking the plastic piece off, and then stopped wearing the vest entirely, there has still been no change . Pt notes the pain is entirely random, and it comes and goes with no apparent cause. Pt also reports there has been random spasm in his pecs, and he is unable to do anything about it other than just wait until it goes away. Pt does admit he has been dropping items more than normal, but is not actually limited with his job. Prior Treatments and Tests Cervical X-ray: Multiple levels of cervical spine degenerative change are seen, which are most prominent at the C5-C6 and the C6-C7 levels. per Elualio Kellogg M.D. on 02/20 EMG: Normal study. Findings are not suggestive of a left median nerve lesion at the wrist, a left ulnar nerve lesion at the wrist or elbow no of an acute or chronic C5 through T1 motor nerve root lesion. per Kianna Comer , PT, DSc, ECS on 11/23/17 Treatment Goals Patient/Caregiver Goals Pt's goal is to reduce pain and limit radicular symptoms Prior Functional Status Baseline Function- ADL's Independent Baseline Function- Mobility Independent Current Functional Impairments (Reported) Functional Limitations- Other Increased dropping of items due to radicular symptoms PT-OP-C Subjective Start: 09/06/18 12:47 Freq: Status: Active Protocol: Document 10/16/18 11:25 HH (Rec: 10/16/18 12:21 HH [email or web address]) OP-PT Subjective Patient Comments Patient Comments Neck is doing pretty good. Rotation is still a little bit less but does not hurt at all . My L arm is still the same but i dont have much of a chest pull now. Patient Reported Progress Improving PT-OP-E Functional Tests Start: 09/06/18 12:47 Freq: Status: Active Protocol: Document 09/04/18 16:00 DCW (Rec: 09/06/18 13:17 DCW [id number]) Functional Tests Apley's Scratch Test Action 1- Left WNL Action 1- Right WNL Action 2- Left WNL Action 2- Right WNL Action 3- Left WNL Action 3- Right WNL PT-OP-F Manual Assessment Start: 09/06/18 12:47 Freq: Status: Active Protocol: Document 09/04/18 16:00 DCW (Rec: 09/06/18 13:17 DCW [id number]) Manual Assessments Soft Tissue Assessment Soft Tissue Mobility Assessment Moderate tone and tenderness to palpation 2/4: Pain with wincing - left suboccipitals Severe tone and tenderness to palpation 3/4: Wincing and withdraw - right upper trap, right pec Joint Mobility Assessment Joint Mobility Assessment No increased complaints of tenderness or radicular pain with palpation of C3-T2 PT-OP-K Range of Motion Start: 09/06/18 12:47 Freq: Status: Active Protocol: Document 09/04/18 16:00 DCW (Rec: 09/06/18 13:17 DCW [id number]) Cervical Spine Range of Motion Cervical Spine Active Degrees Testing Position Sitting Flexion 50 Extension 40 Rotation Left 60 Rotation Right 50 Lateral Flexion Left 30 Lateral Flexion Right 30 ROM Limitations Soft Tissue Tightness,Pain Comments Pain at end-range of right rotation, right sidebending, and cervical extension Shoulder Goniometric Range of Motion Shoulder Right Active Shoulder ROM WFL Yes Left Active Shoulder ROM WFL Yes PT-OP-L Special Tests Start: 09/06/18 12:47 Freq: Status: Active Protocol: Document 09/04/18 16:00 DCW (Rec: 09/06/18 13:17 DCW [id number]) Special Tests Cervical Spine Special Tests Upper Limb Tension Test Test Results Negative Traction Test Results Relieves pain Spurling's Test Test Results Negative Slump Test Results Negative Foraminal Compression Test Results Negative Alar Ligament Test Results Negative PT-OP-Q Treatments Start: 09/06/18 12:47 Freq: Status: Active Protocol: Document 10/16/18 11:25 HH (Rec: 10/16/18 12:21 HH [email or web address]) Cardio Equipment Upper Body Ergometer (UBE) Duration (Minutes) 5 RPM 70 Gym Equipment Cable Column (Body Solid) pull down Resistance 40 lbs Reps/Time cues on lat engagement Therapeutic Exercises Prone Exercises superman prone extension Prone Exercise Name posterior chain extension Side bilateral Reps/Minutes 20 secs hold x5 Comments stomach against therapy ball Sidelying Exercises SL horizontal abduction Side bilateral Equipment Used 2 lbs DB Reps/Minutes 10 x 2 open book + OH Sidelying Exercise Name with UE overhead Side bilateral Reps/Minutes 12 x 2 Comments cues on t/s rotation, with cervical rotation open book Side bilateral Reps/Minutes 12 x 2 Comments cues on t/s rotation, with cervical rotation Standing Exercises hip hinge overhead press Side bilateral Reps/Minutes 10 x 2 Comments neutral spine CAR Side bilateral Equipment Used 2lbs weighted ball Reps/Minutes clockwise x 10, anticlockwise x 10 Comments full shoulder ROM with slow control PT-OP-R Modalities Start: 09/06/18 12:47 Freq: Status: Active Protocol: Document 09/06/18 13:45 GGD (Rec: 09/06/18 15:14 GGD [email or web address]) Spinal Traction Traction Treatment c/s Method Mechanical Patient Position Hooklying Force Applied (Pounds) 10 Duration of Treatment (Minutes) 10 Ultrasound Therapy Treatment UT Treatment Duration (minutes) 8 Patient Position Prone Coupling Medium Ultrasound Gel Applicator Size (cm2) 5 Frequency Setting (mHz) 1 Mode Setting Continuous Duty Cycle 100% Intensity Setting (w/cm2) 1.5 PT-OP-T Assessment and Plan Start: 09/06/18 12:47 Freq: Status: Active Protocol: Document 10/16/18 11:25 HH (Rec: 10/16/18 12:21 HH [email or web address]) Physical Therapy Assessment Assessment Summary Assessment Pt cont to improve shd strength without pain during therex. Focused on RTC strengthening and posterior chain strengthening today. Reassess his post ex soreness next visit. Recommended pt to change visit frequency to once a week after next visit due to his progression. Physical Therapy Plan Next Visit Focus/Plan Next Note Type Treatment Note Next Visit Plan RTC and posterior chain strengthening B shd mobility with weighted. review HEP, change Poc to 1x/ week
--- NOTE | 2018-10-18 15:57 | PT.OTN ---
Current Diagnoses Pain in unspecified joint (10/18/18) Stiffness of unspecified joint, not elsewhere classified (10/18/18) Spinal stenosis, cervical region (10/18/18) Radiculopathy, cervical region (10/18/18) Pain in arm, unspecified (10/18/18) Physical Therapy Treatment Note PT-OP-A Visit Information Start: 09/06/18 12:47 Freq: Status: Active Protocol: Document 10/18/18 13:02 HH (Rec: 10/18/18 15:56 HH [email or web address]) Out-Patient Physical Therapy Visit Information Visit Information Visit Type Treatment Note Visit Start Time 13:02 Visit Stop Time 13:45 Total Visit Minutes 43 Visit Number 8 Number of MINISTER Visits 0 PT-OP-B Current Condition Start: 09/06/18 12:47 Freq: Status: Active Protocol: Document 09/04/18 16:00 DCW (Rec: 09/06/18 13:17 DCW [id number]) Current Condition History of Current Condition Onset Date 1 year history Current Complaints neck and radicular left arm pain History of Current Condition Pt is a 62 year old male complaining of a one year history of cervical pain, with additional radicular pain down his arms bilaterally. Pt notes that he had been wearing a radio vest at work, which had a small plastic piece which put pressure on his neck right where his pain was, but after taking the plastic piece off, and then stopped wearing the vest entirely, there has still been no change . Pt notes the pain is entirely random, and it comes and goes with no apparent cause. Pt also reports there has been random spasm in his pecs, and he is unable to do anything about it other than just wait until it goes away. Pt does admit he has been dropping items more than normal, but is not actually limited with his job. Prior Treatments and Tests Cervical X-ray: Multiple levels of cervical spine degenerative change are seen, which are most prominent at the C5-C6 and the C6-C7 levels. per Eulalio Kellogg M.D. on 02/20 EMG: Normal study. Findings are not suggestive of a left median nerve lesion at the wrist, a left ulnar nerve lesion at the wrist or elbow no of an acute or chronic C5 through T1 motor nerve root lesion. per Kianna Comer , PT, DSc, ECS on 11/23/17 Treatment Goals Patient/Caregiver Goals Pt's goal is to reduce pain and limit radicular symptoms Prior Functional Status Baseline Function- ADL's Independent Baseline Function- Mobility Independent Current Functional Impairments (Reported) Functional Limitations- Other Increased dropping of items due to radicular symptoms PT-OP-C Subjective Start: 09/06/18 12:47 Freq: Status: Active Protocol: Document 10/18/18 13:02 HH (Rec: 10/18/18 15:56 HH [email or web address]) OP-PT Subjective Patient Comments Patient Comments I stopped having chest pull/ cramp since 4 days ago after i stopped taking my cholesterol medication. My neck and arm still doing pretty good. Patient Reported Progress Improving PT-OP-E Functional Tests Start: 09/06/18 12:47 Freq: Status: Active Protocol: Document 09/04/18 16:00 DCW (Rec: 09/06/18 13:17 DCW [id number]) Functional Tests Apley's Scratch Test Action 1- Left WNL Action 1- Right WNL Action 2- Left WNL Action 2- Right WNL Action 3- Left WNL Action 3- Right WNL PT-OP-F Manual Assessment Start: 09/06/18 12:47 Freq: Status: Active Protocol: Document 09/04/18 16:00 DCW (Rec: 09/06/18 13:17 DCW [id number]) Manual Assessments Soft Tissue Assessment Soft Tissue Mobility Assessment Moderate tone and tenderness to palpation 2/4: Pain with wincing - left suboccipitals Severe tone and tenderness to palpation 3/4: Wincing and withdraw - right upper trap, right pec Joint Mobility Assessment Joint Mobility Assessment No increased complaints of tenderness or radicular pain with palpation of C3-T2 PT-OP-K Range of Motion Start: 09/06/18 12:47 Freq: Status: Active Protocol: Document 09/04/18 16:00 DCW (Rec: 09/06/18 13:17 DCW [id number]) Cervical Spine Range of Motion Cervical Spine Active Degrees Testing Position Sitting Flexion 50 Extension 40 Rotation Left 60 Rotation Right 50 Lateral Flexion Left 30 Lateral Flexion Right 30 ROM Limitations Soft Tissue Tightness,Pain Comments Pain at end-range of right rotation, right sidebending, and cervical extension Shoulder Goniometric Range of Motion Shoulder Right Active Shoulder ROM WFL Yes Left Active Shoulder ROM WFL Yes PT-OP-L Special Tests Start: 09/06/18 12:47 Freq: Status: Active Protocol: Document 09/04/18 16:00 DCW (Rec: 09/06/18 13:17 DCW [id number]) Special Tests Cervical Spine Special Tests Upper Limb Tension Test Test Results Negative Traction Test Results Relieves pain Spurling's Test Test Results Negative Slump Test Results Negative Foraminal Compression Test Results Negative Alar Ligament Test Results Negative PT-OP-Q Treatments Start: 09/06/18 12:47 Freq: Status: Active Protocol: Document 10/18/18 13:02 HH (Rec: 10/18/18 15:56 HH [email or web address]) Cardio Equipment Upper Body Ergometer (UBE) Duration (Minutes) 5 RPM 90 Therapeutic Exercises Supine Exercises supine OH reach Side bilateral Equipment Used PVC with 5lbs weight Reps/Minutes 10 x2 Comments cues on neutral spine. Prone Exercises prone OH reach Side bilateral Resistance PVC pipe Reps/Minutes 8 x2 Comments OH shoulder flexion superman prone extension Prone Exercise Name posterior chain extension with shd flexion Side bilateral Reps/Minutes 8 x 2 Comments stomach against therapy ball Sidelying Exercises SL horizontal abduction Side bilateral Equipment Used 2 lbs DB Reps/Minutes 10 x 2 open book + OH Sidelying Exercise Name with UE overhead Side bilateral Reps/Minutes 12 x 2 Comments cues on t/s rotation, with cervical rotation Standing Exercises ski pull down Side bilateral Resistance level 3 band Reps/Minutes 10 x2 hip hinge overhead press Side bilateral Reps/Minutes 10 x 2 Comments neutral spine CAR Side bilateral Equipment Used 2lbs weighted ball Reps/Minutes clockwise x 10, anticlockwise x 10 Comments full shoulder ROM with slow control PT-OP-R Modalities Start: 09/06/18 12:47 Freq: Status: Active Protocol: Document 09/06/18 13:45 GGD (Rec: 09/06/18 15:14 GGD [email or web address]) Spinal Traction Traction Treatment c/s Method Mechanical Patient Position Hooklying Force Applied (Pounds) 10 Duration of Treatment (Minutes) 10 Ultrasound Therapy Treatment UT Treatment Duration (minutes) 8 Patient Position Prone Coupling Medium Ultrasound Gel Applicator Size (cm2) 5 Frequency Setting (mHz) 1 Mode Setting Continuous Duty Cycle 100% Intensity Setting (w/cm2) 1.5 PT-OP-T Assessment and Plan Start: 09/06/18 12:47 Freq: Status: Active Protocol: Document 10/18/18 13:02 (Rec: 10/18/18 15:56 HH [email or web address]) Physical Therapy Assessment Assessment Summary Assessment Pt cont to improve shoulder control and strength without discomfort. Pt agreeable to change PT frequency to 1x/week . Physical Therapy Plan Next Visit Focus/Plan Next Note Type Treatment Note Next Visit Plan RTC and posterior chain strengthening B shd mobility with weighted. review HEP,
--- NOTE | 2018-10-22 12:42 | PT.OTN ---
Current Diagnoses Pain in unspecified joint (10/22/18) Stiffness of unspecified joint, not elsewhere classified (10/22/18) Spinal stenosis, cervical region (10/22/18) Radiculopathy, cervical region (10/22/18) Pain in arm, unspecified (10/22/18) Physical Therapy Treatment Note PT-OP-A Visit Information Start: 09/06/18 12:47 Freq: Status: Active Protocol: Document 10/22/18 12:00 DCW (Rec: 10/22/18 12:42 DCW [id number]) Out-Patient Physical Therapy Visit Information Visit Information Visit Type Treatment Note Visit Start Time 12:00 Visit Stop Time 12:45 Total Visit Minutes 45 Visit Number 9 Number of BROKE MAN Visits 0 Evaluation Information Evaluation Date 09/04/18 PT-OP-B Current Condition Start: 09/06/18 12:47 Freq: Status: Active Protocol: Document 09/04/18 16:00 DCW (Rec: 09/06/18 13:17 DCW [id number]) Current Condition History of Current Condition Onset Date 1 year history Current Complaints neck and radicular left arm pain History of Current Condition Pt is a 62 year old male complaining of a one year history of cervical pain, with additional radicular pain down his arms bilaterally. Pt notes that he had been wearing a radio vest at work, which had a small plastic piece which put pressure on his neck right where his pain was, but after taking the plastic piece off, and then stopped wearing the vest entirely, there has still been no change . Pt notes the pain is entirely random, and it comes and goes with no apparent cause. Pt also reports there has been random spasm in his pecs, and he is unable to do anything about it other than just wait until it goes away. Pt does admit he has been dropping items more than normal, but is not actually limited with his job. Prior Treatments and Tests Cervical X-ray: Multiple levels of cervical spine degenerative change are seen, which are most prominent at the C5-C6 and the C6-C7 levels. per Eulalio Kellogg M.D. on 02/20 EMG: Normal study. Findings are not suggestive of a left median nerve lesion at the wrist, a left ulnar nerve lesion at the wrist or elbow no of an acute or chronic C5 through T1 motor nerve root lesion. per Kianna Comer , PT, DSc, ECS on 11/23/17 Treatment Goals Patient/Caregiver Goals Pt's goal is to reduce pain and limit radicular symptoms Prior Functional Status Baseline Function- ADL's Independent Baseline Function- Mobility Independent Current Functional Impairments (Reported) Functional Limitations- Other Increased dropping of items due to radicular symptoms PT-OP-C Subjective Start: 09/06/18 12:47 Freq: Status: Active Protocol: Document 10/22/18 12:00 DCW (Rec: 10/22/18 12:42 DCW [id number]) OP-PT Subjective Patient Comments Patient Comments Pt notes that overall, he is seeing progress, but he has still been having left arm numbness from his elbow to his hand. PT-OP-E Functional Tests Start: 09/06/18 12:47 Freq: Status: Active Protocol: Document 09/04/18 16:00 DCW (Rec: 09/06/18 13:17 DCW [id number]) Functional Tests Apley's Scratch Test Action 1- Left WNL Action 1- Right WNL Action 2- Left WNL Action 2- Right WNL Action 3- Left WNL Action 3- Right WNL PT-OP-F Manual Assessment Start: 09/06/18 12:47 Freq: Status: Active Protocol: Document 09/04/18 16:00 DCW (Rec: 09/06/18 13:17 DCW [id number]) Manual Assessments Soft Tissue Assessment Soft Tissue Mobility Assessment Moderate tone and tenderness to palpation 2/4: Pain with wincing - left suboccipitals Severe tone and tenderness to palpation 3/4: Wincing and withdraw - right upper trap, right pec Joint Mobility Assessment Joint Mobility Assessment No increased complaints of tenderness or radicular pain with palpation of C3-T2 PT-OP-K Range of Motion Start: 09/06/18 12:47 Freq: Status: Active Protocol: Document 09/04/18 16:00 DCW (Rec: 09/06/18 13:17 DCW [id number]) Cervical Spine Range of Motion Cervical Spine Active Degrees Testing Position Sitting Flexion 50 Extension 40 Rotation Left 60 Rotation Right 50 Lateral Flexion Left 30 Lateral Flexion Right 30 ROM Limitations Soft Tissue Tightness,Pain Comments Pain at end-range of right rotation, right sidebending, and cervical extension Shoulder Goniometric Range of Motion Shoulder Right Active Shoulder ROM WFL Yes Left Active Shoulder ROM WFL Yes PT-OP-L Special Tests Start: 09/06/18 12:47 Freq: Status: Active Protocol: Document 09/04/18 16:00 DCW (Rec: 09/06/18 13:17 DCW [id number]) Special Tests Cervical Spine Special Tests Upper Limb Tension Test Test Results Negative Traction Test Results Relieves pain Spurling's Test Test Results Negative Slump Test Results Negative Foraminal Compression Test Results Negative Alar Ligament Test Results Negative PT-OP-Q Treatments Start: 09/06/18 12:47 Freq: Status: Active Protocol: Document 10/22/18 12:00 DCW (Rec: 10/22/18 12:42 DCW [id number]) Cardio Equipment Upper Body Ergometer (UBE) Duration (Minutes) 5 RPM 60 Seat Position 12 Height 3.5 Therapeutic Exercises Prone Exercises Extension Prone Exercise Name Extension Resistance 3# Equipment Used Prone on T-ball Reps/Minutes x20 Horizontal Abduction Prone Exercise Name Horizontal Abduction Resistance 3# Equipment Used Prone on T-ball Reps/Minutes x20 superman prone extension Prone Exercise Name posterior chain extension with shd flexion Side bilateral Reps/Minutes 20 sec hold x5 Comments stomach against therapy ball Sidelying Exercises Shoulder Abduction Sidelying Exercise Name Abduction Side left Equipment Used 2# Reps/Minutes x20 SL horizontal abduction Sidelying Exercise Name Horizontal Abduction Side left Equipment Used 2# Reps/Minutes x20 open book Side bilateral Reps/Minutes 12 x 2 Comments cues on t/s rotation, with cervical rotation Standing Exercises Press up Standing Exercise Name Standing chest press Resistance 5# Equipment Used PVC Manual Therapy Treatment Soft Tissue Mobilization UT, Lev scap, Body Location UT, lev scap, IS,TM/TM Mobilization Type Myofascial Release,Sustained Pressure Intensity/Depth Moderate Comments with R cervical rotation Joint Mobilizations Scapulothoracic Joint Scapulothoracic Direction Lateral Grade III Body Position Supine PT-OP-R Modalities Start: 09/06/18 12:47 Freq: Status: Active Protocol: Document 09/06/18 13:45 GGD (Rec: 09/06/18 15:14 GGD [id number]) Spinal Traction Traction Treatment c/s Method Mechanical Patient Position Hooklying Force Applied (Pounds) 10 Duration of Treatment (Minutes) 10 Ultrasound Therapy Treatment UT Treatment Duration (minutes) 8 Patient Position Prone Coupling Medium Ultrasound Gel Applicator Size (cm2) 5 Frequency Setting (mHz) 1 Mode Setting Continuous Duty Cycle 100% Intensity Setting (w/cm2) 1.5 PT-OP-T Assessment and Plan Start: 09/06/18 12:47 Freq: Status: Active Protocol: Document 10/22/18 12:00 DCW (Rec: 10/22/18 12:42 DCW [id number]) Physical Therapy Assessment Impairments Impairments Functional Mobility,Pain, Posture,ROM,Soft Tissue Mobility,Tone Goals Three Impairment Pt has restricted pain-free cervical ROM 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 with both flexion and extension, as well as 70? rotation bilaterally LTG Duration 11/05/18 Two Impairment Pt has been dropping tools at work Short Term Goal (STG) Pt to report no dropping of tools for two weeks at work due to decreased radicular symptoms STG Duration 10/05/18 One Impairment Pt does not have an appropriate home exercise program Short Term Goal (STG) Pt to be independent and compliant with an appropriate HEP STG Duration 10/05/18 Assessment Summary Assessment Pt appears to be progressing weel, less tone and pain compared to initial evaluation . Continues to experience left UE numbness with certain positioning. Physical Therapy Plan Frequency and Duration Frequency of Treatment 2x/Week Duration of Treatment 10 weeks Plan of Care Start Date 09/04/18 Plan of Care End Date 11/13/18 Next Visit Focus/Plan Next Note Type Treatment Note Next Visit Plan RTC and posterior chain strengthening B shd mobility with weighted. review HEP
--- NOTE | 2018-10-24 12:42 | PT.OTN ---
Current Diagnoses Pain in unspecified joint (10/24/18) Stiffness of unspecified joint, not elsewhere classified (10/24/18) Spinal stenosis, cervical region (10/24/18) Radiculopathy, cervical region (10/24/18) Pain in arm, unspecified (10/24/18) Physical Therapy Treatment Note PT-OP-A Visit Information Start: 09/06/18 12:47 Freq: Status: Active Protocol: Document 10/24/18 12:00 DCW (Rec: 10/24/18 12:42 DCW [id number]) Out-Patient Physical Therapy Visit Information Visit Information Visit Type Treatment Note Visit Start Time 12:00 Visit Stop Time 12:45 Total Visit Minutes 45 Visit Number 10 Number of RESEARCH INSTRUCTOR Visits 0 Evaluation Information Evaluation Date 09/04/18 PT-OP-B Current Condition Start: 09/06/18 12:47 Freq: Status: Active Protocol: Document 09/04/18 16:00 DCW (Rec: 09/06/18 13:17 DCW [id number]) Current Condition History of Current Condition Onset Date 1 year history Current Complaints neck and radicular left arm pain History of Current Condition Pt is a 62 year old male complaining of a one year history of cervical pain, with additional radicular pain down his arms bilaterally. Pt notes that he had been wearing a radio vest at work, which had a small plastic piece which put pressure on his neck right where his pain was, but after taking the plastic piece off, and then stopped wearing the vest entirely, there has still been no change . Pt notes the pain is entirely random, and it comes and goes with no apparent cause. Pt also reports there has been random spasm in his pecs, and he is unable to do anything about it other than just wait until it goes away. Pt does admit he has been dropping items more than normal, but is not actually limited with his job. Prior Treatments and Tests Cervical X-ray: Multiple levels of cervical spine degenerative change are seen, which are most prominent at the C5-C6 and the C6-C7 levels. per Eulalio Kellogg M.D. on 02/20 EMG: Normal study. Findings are not suggestive of a left median nerve lesion at the wrist, a left ulnar nerve lesion at the wrist or elbow no of an acute or chronic C5 through T1 motor nerve root lesion. per Kianna Comer , PT, DSc, ECS on 11/23/17 Treatment Goals Patient/Caregiver Goals Pt's goal is to reduce pain and limit radicular symptoms Prior Functional Status Baseline Function- ADL's Independent Baseline Function- Mobility Independent Current Functional Impairments (Reported) Functional Limitations- Other Increased dropping of items due to radicular symptoms PT-OP-C Subjective Start: 09/06/18 12:47 Freq: Status: Active Protocol: Document 10/24/18 12:00 DCW (Rec: 10/24/18 12:42 DCW [id number]) OP-PT Subjective Patient Comments Patient Comments Pt reports there have been no big changes one way or the other since he was last here. PT-OP-E Functional Tests Start: 09/06/18 12:47 Freq: Status: Active Protocol: Document 09/04/18 16:00 DCW (Rec: 09/06/18 13:17 DCW [id number]) Functional Tests Apley's Scratch Test Action 1- Left WNL Action 1- Right WNL Action 2- Left WNL Action 2- Right WNL Action 3- Left WNL Action 3- Right WNL PT-OP-F Manual Assessment Start: 09/06/18 12:47 Freq: Status: Active Protocol: Document 09/04/18 16:00 DCW (Rec: 09/06/18 13:17 DCW [id number]) Manual Assessments Soft Tissue Assessment Soft Tissue Mobility Assessment Moderate tone and tenderness to palpation 2/4: Pain with wincing - left suboccipitals Severe tone and tenderness to palpation 3/4: Wincing and withdraw - right upper trap, right pec Joint Mobility Assessment Joint Mobility Assessment No increased complaints of tenderness or radicular pain with palpation of C3-T2 PT-OP-K Range of Motion Start: 09/06/18 12:47 Freq: Status: Active Protocol: Document 09/04/18 16:00 DCW (Rec: 09/06/18 13:17 DCW [id number]) Cervical Spine Range of Motion Cervical Spine Active Degrees Testing Position Sitting Flexion 50 Extension 40 Rotation Left 60 Rotation Right 50 Lateral Flexion Left 30 Lateral Flexion Right 30 ROM Limitations Soft Tissue Tightness,Pain Comments Pain at end-range of right rotation, right sidebending, and cervical extension Shoulder Goniometric Range of Motion Shoulder Right Active Shoulder ROM WFL Yes Left Active Shoulder ROM WFL Yes PT-OP-L Special Tests Start: 09/06/18 12:47 Freq: Status: Active Protocol: Document 09/04/18 16:00 DCW (Rec: 09/06/18 13:17 DCW [id number]) Special Tests Cervical Spine Special Tests Upper Limb Tension Test Test Results Negative Traction Test Results Relieves pain Spurling's Test Test Results Negative Slump Test Results Negative Foraminal Compression Test Results Negative Alar Ligament Test Results Negative PT-OP-Q Treatments Start: 09/06/18 12:47 Freq: Status: Active Protocol: Document 10/24/18 12:00 DCW (Rec: 10/24/18 12:42 DCW [id number]) Cardio Equipment Upper Body Ergometer (UBE) Duration (Minutes) 5 RPM 60 Seat Position 12 Height 3.5 Gym Equipment Cable Column (Body Solid) Rows Resistance 40# pull down Resistance 40# Reps/Time 2x15 Therapeutic Ball Isometric shoulder flexion Exercise Details Isometric hold vs perturbation Ball Size/Color Blue - 45 cm Body Position Supine Therapeutic Exercises Supine Exercises Horizontal Adduction Supine Exercise Name Horizontal Adduction Side bilateral Resistance 3# Reps/Minutes 2x20 Serratus punch Supine Exercise Name Serratus punch Side bilateral Resistance 3# Reps/Minutes 2x20 Prone Exercises Extension Prone Exercise Name Extension Resistance 3# Equipment Used Prone on T-ball Reps/Minutes x20 Horizontal Abduction Prone Exercise Name Horizontal Abduction Resistance 3# Equipment Used Prone on T-ball Reps/Minutes x20 superman prone extension Prone Exercise Name posterior chain extension with shd flexion Side bilateral Reps/Minutes 20 sec hold x5 Comments stomach against therapy ball Other Exercises UE Resisted Side-stepping Other Exercise Name UE resisted side-stepping Resistance Green Equipment Used T-band Manual Therapy Treatment Soft Tissue Mobilization UT, Lev scap, Body Location UT, lev scap, IS,TM/TM Mobilization Type Myofascial Release,Sustained Pressure Intensity/Depth Moderate Comments with R cervical rotation PT-OP-R Modalities Start: 09/06/18 12:47 Freq: Status: Active Protocol: Document 09/06/18 13:45 GGD (Rec: 09/06/18 15:14 GGD [id number]) Spinal Traction Traction Treatment c/s Method Mechanical Patient Position Hooklying Force Applied (Pounds) 10 Duration of Treatment (Minutes) 10 Ultrasound Therapy Treatment UT Treatment Duration (minutes) 8 Patient Position Prone Coupling Medium Ultrasound Gel Applicator Size (cm2) 5 Frequency Setting (mHz) 1 Mode Setting Continuous Duty Cycle 100% Intensity Setting (w/cm2) 1.5 PT-OP-T Assessment and Plan Start: 09/06/18 12:47 Freq: Status: Active Protocol: Document 10/24/18 12:00 DCW (Rec: 10/24/18 12:42 DCW [id number]) Physical Therapy Assessment Impairments Impairments Functional Mobility,Pain, Posture,ROM,Soft Tissue Mobility,Tone Goals Three Impairment Pt has restricted pain-free cervical ROM 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 with both flexion and extension, as well as 70? rotation bilaterally LTG Duration 11/05/18 Two Impairment Pt has been dropping tools at work Short Term Goal (STG) Pt to report no dropping of tools for two weeks at work due to decreased radicular symptoms STG Duration 10/05/18 One Impairment Pt does not have an appropriate home exercise program Short Term Goal (STG) Pt to be independent and compliant with an appropriate HEP STG Duration 10/05/18 Assessment Summary Assessment Pt continues to improve, although left forearm numbness remains. Tolerated new TherEx well, although pt noted that it was quite a workout. Physical Therapy Plan Frequency and Duration Frequency of Treatment 2x/Week Duration of Treatment 10 weeks Plan of Care Start Date 09/04/18 Plan of Care End Date 11/13/18 Next Visit Focus/Plan Next Note Type Treatment Note Next Visit Plan RTC and posterior chain strengthening B shd mobility with weighted. review HEP
--- NOTE | 2018-10-29 16:57 | PT.OTN ---
Current Diagnoses Pain in unspecified joint (10/29/18) Stiffness of unspecified joint, not elsewhere classified (10/29/18) Spinal stenosis, cervical region (10/29/18) Radiculopathy, cervical region (10/29/18) Pain in arm, unspecified (10/29/18) Physical Therapy Treatment Note PT-OP-A Visit Information Start: 09/06/18 12:47 Freq: Status: Active Protocol: Document 10/29/18 16:40 AW (Rec: 10/29/18 16:57 AW [id number]) Out-Patient Physical Therapy Visit Information Visit Information Visit Type Treatment Note Visit Start Time 15:58 Visit Stop Time 16:38 Total Visit Minutes 40 Visit Number 11 Number of KNUCKLE STRAP SEWER Visits 0 Evaluation Information Evaluation Date 09/04/18 PT-OP-B Current Condition Start: 09/06/18 12:47 Freq: Status: Active Protocol: Document 09/04/18 16:00 DCW (Rec: 09/06/18 13:17 DCW [id number]) Current Condition History of Current Condition Onset Date 1 year history Current Complaints neck and radicular left arm pain History of Current Condition Pt is a 62 year old male complaining of a one year history of cervical pain, with additional radicular pain down his arms bilaterally. Pt notes that he had been wearing a radio vest at work, which had a small plastic piece which put pressure on his neck right where his pain was, but after taking the plastic piece off, and then stopped wearing the vest entirely, there has still been no change . Pt notes the pain is entirely random, and it comes and goes with no apparent cause. Pt also reports there has been random spasm in his pecs, and he is unable to do anything about it other than just wait until it goes away. Pt does admit he has been dropping items more than normal, but is not actually limited with his job. Prior Treatments and Tests Cervical X-ray: Multiple levels of cervical spine degenerative change are seen, which are most prominent at the C5-C6 and the C6-C7 levels. per Eulalio Kellogg M.D. on 02/20 EMG: Normal study. Findings are not suggestive of a left median nerve lesion at the wrist, a left ulnar nerve lesion at the wrist or elbow no of an acute or chronic C5 through T1 motor nerve root lesion. per Kianna Comer , PT, DSc, ECS on 11/23/17 Treatment Goals Patient/Caregiver Goals Pt's goal is to reduce pain and limit radicular symptoms Prior Functional Status Baseline Function- ADL's Independent Baseline Function- Mobility Independent Current Functional Impairments (Reported) Functional Limitations- Other Increased dropping of items due to radicular symptoms PT-OP-C Subjective Start: 09/06/18 12:47 Freq: Status: Active Protocol: Document 10/29/18 16:40 AW (Rec: 10/29/18 16:57 AW [id number]) OP-PT Subjective Patient Comments Patient Comments Pt reports relief from neck pain, but he still has left forearm numbness frequently PT-OP-E Functional Tests Start: 09/06/18 12:47 Freq: Status: Active Protocol: Document 09/04/18 16:00 DCW (Rec: 09/06/18 13:17 DCW [id number]) Functional Tests Apley's Scratch Test Action 1- Left WNL Action 1- Right WNL Action 2- Left WNL Action 2- Right WNL Action 3- Left WNL Action 3- Right WNL PT-OP-F Manual Assessment Start: 09/06/18 12:47 Freq: Status: Active Protocol: Document 09/04/18 16:00 DCW (Rec: 09/06/18 13:17 DCW [id number]) Manual Assessments Soft Tissue Assessment Soft Tissue Mobility Assessment Moderate tone and tenderness to palpation 2/4: Pain with wincing - left suboccipitals Severe tone and tenderness to palpation 3/4: Wincing and withdraw - right upper trap, right pec Joint Mobility Assessment Joint Mobility Assessment No increased complaints of tenderness or radicular pain with palpation of C3-T2 PT-OP-K Range of Motion Start: 09/06/18 12:47 Freq: Status: Active Protocol: Document 09/04/18 16:00 DCW (Rec: 09/06/18 13:17 DCW [id number]) Cervical Spine Range of Motion Cervical Spine Active Degrees Testing Position Sitting Flexion 50 Extension 40 Rotation Left 60 Rotation Right 50 Lateral Flexion Left 30 Lateral Flexion Right 30 ROM Limitations Soft Tissue Tightness,Pain Comments Pain at end-range of right rotation, right sidebending, and cervical extension Shoulder Goniometric Range of Motion Shoulder Right Active Shoulder ROM WFL Yes Left Active Shoulder ROM WFL Yes PT-OP-L Special Tests Start: 09/06/18 12:47 Freq: Status: Active Protocol: Document 09/04/18 16:00 DCW (Rec: 09/06/18 13:17 DCW [id number]) Special Tests Cervical Spine Special Tests Upper Limb Tension Test Test Results Negative Traction Test Results Relieves pain Spurling's Test Test Results Negative Slump Test Results Negative Foraminal Compression Test Results Negative Alar Ligament Test Results Negative PT-OP-Q Treatments Start: 09/06/18 12:47 Freq: Status: Active Protocol: Document 10/29/18 16:40 AW (Rec: 10/29/18 16:57 AW [id number]) Cardio Equipment Upper Body Ergometer (UBE) Duration (Minutes) 5 RPM 60 Seat Position 12 Height 3.5 Gym Equipment Cable Column (Body Solid) depression Details depression Resistance 40# Reps/Time 3x10 reps Rows Resistance 40# Reps/Time 2x12 reps pull down Resistance 40# Reps/Time 2x15 reps Therapeutic Exercises Supine Exercises Horizontal Adduction Supine Exercise Name Horizontal Adduction Side bilateral Resistance 4# Reps/Minutes 2x20 reps Serratus punch Supine Exercise Name Serratus punch Side bilateral Resistance 4# Reps/Minutes 2x20 reps Prone Exercises superman prone extension Prone Exercise Name posterior chain extension with shd flexion Side bilateral Equipment Used 65 cm ball Reps/Minutes 20 sec hold x 4 Comments stomach on therapy ball Other Exercises UE Resisted Side-stepping Other Exercise Name UE resisted side-stepping/GH isometric walkouts Side bilateral Resistance level 3 Equipment Used theraband Reps/Minutes out and back 5x ER/5X IR Comments cues for neutral wrist Manual Therapy Treatment Nerve Glides ulnar nerve glide Nerve ulnar Body Position Standing Reps/Duration 2x10 Comments left side; shoulder in abduction with wrist extension , back to elbow bent with wrist flexion PT-OP-R Modalities Start: 09/06/18 12:47 Freq: Status: Active Protocol: Document 09/06/18 13:45 GGD (Rec: 09/06/18 15:14 GGD [email or web address]) Spinal Traction Traction Treatment c/s Method Mechanical Patient Position Hooklying Force Applied (Pounds) 10 Duration of Treatment (Minutes) 10 Ultrasound Therapy Treatment UT Treatment Duration (minutes) 8 Patient Position Prone Coupling Medium Ultrasound Gel Applicator Size (cm2) 5 Frequency Setting (mHz) 1 Mode Setting Continuous Duty Cycle 100% Intensity Setting (w/cm2) 1.5 PT-OP-T Assessment and Plan Start: 09/06/18 12:47 Freq: Status: Active Protocol: Document 10/29/18 16:40 AW (Rec: 10/29/18 16:57 AW [id number]) Physical Therapy Assessment Impairments Impairments Functional Mobility,Pain, Posture,ROM,Soft Tissue Mobility,Tone Goals Three Impairment Pt has restricted pain-free cervical ROM Sales Representative 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 with both flexion and extension, as well as 70? rotation bilaterally LTG Duration 11/05/18 Two Impairment Pt has been dropping tools at work Short Term Goal (STG) Pt to report no dropping of tools for two weeks at work due to decreased radicular symptoms STG Duration 10/05/18 One Impairment Pt does not have an appropriate home exercise program Short Term Goal (STG) Pt to be independent and compliant with an appropriate HEP STG Duration 10/05/18 Assessment Summary Assessment Pt still complaining of left forearm numbness from lateral elbow, along ulnar aspect of forearm and in 4th/5th digits. Introduced an ulnar nerve glide today and continued with new ther ex, including prone superman extension on theraball with perturbations to ball and to shoulder girdle which he tolerated well. Physical Therapy Plan Frequency and Duration Frequency of Treatment 2x/Week Duration of Treatment 10 weeks Plan of Care Start Date 09/04/18 Plan of Care End Date 11/13/18 Next Visit Focus/Plan Next Note Type Treatment Note Next Visit Plan RTC and posterior chain strengthening B shd mobility with weighted. review HEP
--- NOTE | 2018-10-31 17:32 | PT.OTN ---
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 Pt notes that he had been wearing a radio vest at work, which had a small plastic piece which put pressure on his neck right where his pain was, but after taking the plastic piece off, and then stopped wearing the vest entirely, there has still been no change . Pt notes the pain is entirely random, and it comes and goes with no apparent cause. Pt also reports there has been random spasm in his pecs, and he is unable to do anything about it other than just wait until it goes away. Pt does admit he has been dropping items more than normal, but is not actually limited with his job. Prior Treatments and Tests Cervical X-ray: Multiple levels of cervical spine degenerative change are seen, which are most prominent at the C5-C6 and the C6-C7 levels. per Eulalio Kellogg M.D. on 02/20 EMG: Normal study. Findings are not suggestive of a left median nerve lesion at the wrist, a left ulnar nerve lesion at the wrist or elbow no of an acute or chronic C5 through T1 motor nerve root lesion. per Kianna Comer , PT, DSc, ECS on 11/23/17 Treatment Goals Patient/Caregiver Goals Pt's goal is to reduce pain and limit radicular symptoms Prior Functional Status Baseline Function- ADL's Independent Baseline Function- Mobility Independent Current Functional Impairments (Reported) Functional Limitations- Other Increased dropping of items due to radicular symptoms PT-OP-C Subjective Start: 09/06/18 12:47 Freq: Status: Active Protocol: Document 10/31/18 17:20 AW (Rec: 10/31/18 17:32 AW [email or web address]) OP-PT Subjective Patient Comments Patient Comments I feel pretty good. Looking forward to christi ashvinlisa. PT-OP-E Functional Tests Start: 09/06/18 12:47 Freq: Status: Active Protocol: Document 09/04/18 16:00 DCW (Rec: 09/06/18 13:17 DCW [id number]) Functional Tests Apley's Scratch Test Action 1- Left WNL Action 1- Right WNL Action 2- Left WNL Action 2- Right WNL Action 3- Left WNL Action 3- Right WNL PT-OP-F Manual Assessment Start: 09/06/18 12:47 Freq: Status: Active Protocol: Document 09/04/18 16:00 DCW (Rec: 09/06/18 13:17 DCW [id number]) Manual Assessments Soft Tissue Assessment Soft Tissue Mobility Assessment Moderate tone and tenderness to palpation 2/4: Pain with wincing - left suboccipitals Severe tone and tenderness to palpation 3/4: Wincing and withdraw - right upper trap, right pec Joint Mobility Assessment Joint Mobility Assessment No increased complaints of tenderness or radicular pain with palpation of C3-T2 PT-OP-K Range of Motion Start: 09/06/18 12:47 Freq: Status: Active Protocol: Document 09/04/18 16:00 DCW (Rec: 09/06/18 13:17 DCW [id number]) Cervical Spine Range of Motion Cervical Spine Active Degrees Testing Position Sitting Flexion 50 Extension 40 Rotation Left 60 Rotation Right 50 Lateral Flexion Left 30 Lateral Flexion Right 30 ROM Limitations Soft Tissue Tightness,Pain Comments Pain at end-range of right rotation, right sidebending, and cervical extension Shoulder Goniometric Range of Motion Shoulder Right Active Shoulder ROM WFL Yes Left Active Shoulder ROM WFL Yes PT-OP-L Special Tests Start: 09/06/18 12:47 Freq: Status: Active Protocol: Document 09/04/18 16:00 DCW (Rec: 09/06/18 13:17 DCW [id number]) Special Tests Cervical Spine Special Tests Upper Limb Tension Test Test Results Negative Traction Test Results Relieves pain Spurling's Test Test Results Negative Slump Test Results Negative Foraminal Compression Test Results Negative Alar Ligament Test Results Negative PT-OP-Q Treatments Start: 09/06/18 12:47 Freq: Status: Active Protocol: Document 10/31/18 17:20 AW (Rec: 10/31/18 17:32 AW [email or web address]) Cardio Equipment Upper Body Ergometer (UBE) Duration (Minutes) 5 RPM 75 Seat Position 12 Height 3.5 Gym Equipment Cable Column (Body Solid) depression Details depression Resistance 40# Reps/Time 2x15 reps Rows Details rows Resistance 40# Reps/Time 2x12 reps pull down Details lat pull down Resistance 40# Reps/Time 2x15 reps Therapeutic Exercises Prone Exercises prone walkouts Prone Exercise Name prone walkouts Side bilateral Equipment Used 65 cm ball Reps/Minutes 8 reps Comments out and back from ball on chest to ball on prox thighs superman prone extension Prone Exercise Name posterior chain extension with shd flexion Side bilateral Equipment Used 65 cm ball Reps/Minutes 20 sec hold x 4 Comments stomach on therapy ball Other Exercises UE Resisted Side-stepping Other Exercise Name UE resisted side-stepping/GH isometric walkouts Side bilateral Resistance level 3 Equipment Used theraband Reps/Minutes out and back 5x ER/5X IR Comments cues for neutral wrist Manual Therapy Treatment Nerve Glides ulnar nerve glide Nerve ulnar Body Position Standing Reps/Duration 2x10 Comments left side; shoulder in abduction with wrist extension , back to elbow bent with wrist flexion PT-OP-R Modalities Start: 09/06/18 12:47 Freq: Status: Active Protocol: Document 09/06/18 13:45 GGD (Rec: 09/06/18 15:14 GGD [email or web address]) Spinal Traction Traction Treatment c/s Method Mechanical Patient Position Hooklying Force Applied (Pounds) 10 Duration of Treatment (Minutes) 10 Ultrasound Therapy Treatment UT Treatment Duration (minutes) 8 Patient Position Prone Coupling Medium Ultrasound Gel Applicator Size (cm2) 5 Frequency Setting (mHz) 1 Mode Setting Continuous Duty Cycle 100% Intensity Setting (w/cm2) 1.5 PT-OP-T Assessment and Plan Start: 09/06/18 12:47 Freq: Status: Active Protocol: Document 10/31/18 17:20 AW (Rec: 10/31/18 17:32 AW [email or web address]) Physical Therapy Assessment Goals Three Impairment Pt has restricted pain-free cervical ROM Senior Living Goal (LTG) Pt pain-free cervical ROM to improve to 70? with both flexion and extension, as well as 70? rotation bilaterally LTG Duration 11/05/18 Two Impairment Pt has been dropping tools at work Short Term Goal (STG) Pt to report no dropping of tools for two weeks at work due to decreased radicular symptoms STG Duration 10/05/18 One Impairment Pt does not have an appropriate home exercise program Short Term Goal (STG) Pt to be independent and compliant with an appropriate HEP STG Duration 10/05/18 Assessment Summary Assessment Tingling sensation in ulnar nerve distribution noted with leaning on elbow and while weightbearing with wrist in extension. Pt tolerated ther ex well today, feels he is definitely working hard. Physical Therapy Plan Frequency and Duration Frequency of Treatment 2x/Week Duration of Treatment 10 weeks Plan of Care Start Date 09/04/18 Plan of Care End Date 11/13/18 Next Visit Focus/Plan Next Note Type Treatment Note Next Visit Plan 2 visits left in current plan of care plan to re-visit goals plan to update HEP for discharge
--- NOTE | 2018-11-05 17:02 | PT.OTN ---
Current Diagnoses Pain in unspecified joint (11/05/18) Stiffness of unspecified joint, not elsewhere classified (11/05/18) Spinal stenosis, cervical region (11/05/18) Radiculopathy, cervical region (11/05/18) Pain in arm, unspecified (11/05/18) Physical Therapy Treatment Note PT-OP-A Visit Information Start: 09/06/18 12:47 Freq: Status: Active Protocol: Document 11/05/18 16:46 AW (Rec: 11/05/18 17:02 AW [email or web address]) Out-Patient Physical Therapy Visit Information Visit Information Visit Type Treatment Note Visit Start Time 16:05 Visit Stop Time 16:46 Total Visit Minutes 41 Visit Number 13 Number of DELIVERER FOOD Visits 0 PT-OP-B Current Condition Start: 09/06/18 12:47 Freq: Status: Active Protocol: Document 09/04/18 16:00 DCW (Rec: 09/06/18 13:17 DCW [id number]) Current Condition History of Current Condition Onset Date 1 year history Current Complaints neck and radicular left arm pain History of Current Condition Pt is a 62 year old male complaining of a one year history of cervical pain, with additional radicular pain down his arms bilaterally. Pt notes that he had been wearing a radio vest at work, which had a small plastic piece which put pressure on his neck right where his pain was, but after taking the plastic piece off, and then stopped wearing the vest entirely, there has still been no change . Pt notes the pain is entirely random, and it comes and goes with no apparent cause. Pt also reports there has been random spasm in his pecs, and he is unable to do anything about it other than just wait until it goes away. Pt does admit he has been dropping items more than normal, but is not actually limited with his job. Prior Treatments and Tests Cervical X-ray: Multiple levels of cervical spine degenerative change are seen, which are most prominent at the C5-C6 and the C6-C7 levels. per Eulalio Kellogg M.D. on 02/20 EMG: Normal study. Findings are not suggestive of a left median nerve lesion at the wrist, a left ulnar nerve lesion at the wrist or elbow no of an acute or chronic C5 through T1 motor nerve root lesion. per Kianna Comer , PT, DSc, ECS on 11/23/17 Treatment Goals Patient/Caregiver Goals Pt's goal is to reduce pain and limit radicular symptoms Prior Functional Status Baseline Function- ADL's Independent Baseline Function- Mobility Independent Current Functional Impairments (Reported) Functional Limitations- Other Increased dropping of items due to radicular symptoms PT-OP-C Subjective Start: 09/06/18 12:47 Freq: Status: Active Protocol: Document 11/05/18 16:46 AW (Rec: 11/05/18 17:02 AW [email or web address]) OP-PT Subjective Patient Comments Patient Comments I'm feeling better overall since beginning PT, but not much improvement in the last month. I have much less pain in my neck but the numbness in my hand is about the same. Patient Reported Progress Improving PT-OP-E Functional Tests Start: 09/06/18 12:47 Freq: Status: Active Protocol: Document 09/04/18 16:00 DCW (Rec: 09/06/18 13:17 DCW [id number]) Functional Tests Apley's Scratch Test Action 1- Left WNL Action 1- Right WNL Action 2- Left WNL Action 2- Right WNL Action 3- Left WNL Action 3- Right WNL PT-OP-F Manual Assessment Start: 09/06/18 12:47 Freq: Status: Active Protocol: Document 09/04/18 16:00 DCW (Rec: 09/06/18 13:17 DCW [id number]) Manual Assessments Soft Tissue Assessment Soft Tissue Mobility Assessment Moderate tone and tenderness to palpation 2/4: Pain with wincing - left suboccipitals Severe tone and tenderness to palpation 3/4: Wincing and withdraw - right upper trap, right pec Joint Mobility Assessment Joint Mobility Assessment No increased complaints of tenderness or radicular pain with palpation of C3-T2 PT-OP-K Range of Motion Start: 09/06/18 12:47 Freq: Status: Active Protocol: Document 09/04/18 16:00 DCW (Rec: 09/06/18 13:17 DCW [id number]) Cervical Spine Range of Motion Cervical Spine Active Degrees Testing Position Sitting Flexion 50 Extension 40 Rotation Left 60 Rotation Right 50 Lateral Flexion Left 30 Lateral Flexion Right 30 ROM Limitations Soft Tissue Tightness,Pain Comments Pain at end-range of right rotation, right sidebending, and cervical extension Shoulder Goniometric Range of Motion Shoulder Right Active Shoulder ROM WFL Yes Left Active Shoulder ROM WFL Yes PT-OP-L Special Tests Start: 09/06/18 12:47 Freq: Status: Active Protocol: Document 09/04/18 16:00 DCW (Rec: 09/06/18 13:17 DCW [id number]) Special Tests Cervical Spine Special Tests Upper Limb Tension Test Test Results Negative Traction Test Results Relieves pain Spurling's Test Test Results Negative Slump Test Results Negative Foraminal Compression Test Results Negative Alar Ligament Test Results Negative PT-OP-Q Treatments Start: 09/06/18 12:47 Freq: Status: Active Protocol: Document 11/05/18 16:46 AW (Rec: 11/05/18 17:02 AW [email or web address]) Cardio Equipment Upper Body Ergometer (UBE) Duration (Minutes) 5 RPM 75 Seat Position 12 Height 3.5 Gym Equipment Cable Column (Body Solid) depression Details depression Resistance 40# Reps/Time 2x15 reps Rows Details rows Resistance 40# Reps/Time 2x12 reps pull down Details lat pull down Resistance 40# Reps/Time 2x15 reps Therapeutic Exercises Prone Exercises quadruped thread the needle Prone Exercise Name quadruped thread the needle Side bilateral Reps/Minutes 10 reps each side Comments UE support on fists to avoid wrist extension cat cow Prone Exercise Name cat cow Side bilateral Reps/Minutes 20 reps Comments for global spinal mobility child pose Prone Exercise Name child pose Side bilateral Reps/Minutes 3x30 seconds Comments cues to keep hips low. Standing Exercises body blade Standing Exercise Name body blade Side bilateral Reps/Minutes 2 x 30 seconds bilat Comments at shoulder height and into flexion Other Exercises UE Resisted Side-stepping Other Exercise Name UE resisted side-stepping/GH isometric walkouts Side bilateral Resistance level 3 Equipment Used theraband Reps/Minutes out and back 5x ER/5X IR Comments cues for neutral wrist Manual Therapy Treatment Nerve Glides ulnar nerve glide Nerve ulnar Body Position Standing Reps/Duration 5 reps Comments full ulnar tension position with 3 second hold; poorly tolerated; discontinued PT-OP-R Modalities Start: 09/06/18 12:47 Freq: Status: Active Protocol: Document 09/06/18 13:45 GGD (Rec: 09/06/18 15:14 GGD [email or web address]) Spinal Traction Traction Treatment c/s Method Mechanical Patient Position Hooklying Force Applied (Pounds) 10 Duration of Treatment (Minutes) 10 Ultrasound Therapy Treatment UT Treatment Duration (minutes) 8 Patient Position Prone Coupling Medium Ultrasound Gel Applicator Size (cm2) 5 Frequency Setting (mHz) 1 Mode Setting Continuous Duty Cycle 100% Intensity Setting (w/cm2) 1.5 PT-OP-T Assessment and Plan Start: 09/06/18 12:47 Freq: Status: Active Protocol: Document 11/05/18 16:46 AW (Rec: 11/05/18 17:02 AW [email or web address]) Physical Therapy Assessment Goals Three Impairment Pt has restricted pain-free cervical ROM Baggage Screener Goal (LTG) Pt pain-free cervical ROM to improve to 70? with both flexion and extension, as well as 70? rotation bilaterally 11/05/18: Pt has pain-free ROM to 60 deg flexion, 50 deg extension, 45 deg R rotation, 50 deg L rotation. LTG Duration 11/05/18 Two Impairment Pt has been dropping tools at work Short Term Goal (STG) Pt to report no dropping of tools for two weeks at work due to decreased radicular symptoms 11/05/18: Pt reports no dropped tools for 3-4 weeks. STG Duration 10/05/18 One Impairment Pt does not have an appropriate home exercise program Short Term Goal (STG) Pt to be independent and compliant with an appropriate HEP STG Duration 10/05/18 Assessment Summary Assessment Pt is feeling confident with HEP (upper trap stretch, prayer stretch, GH IR/ER walkouts with bands, child pose stretch, and walking ~3 mi/ day). He feels he has made good progress with pain-free neck ROM but continues to deal with tingling/numbness in bilateral hands (L worse than R). He is tolerating ther ex well with good attention to scapular and cervical posture. Physical Therapy Plan Frequency and Duration Frequency of Treatment 2x/Week Duration of Treatment 10 weeks Plan of Care Start Date 09/04/18 Plan of Care End Date 11/13/18 Next Visit Focus/Plan Next Note Type Discharge Summary Next Visit Plan Update HEP for discharge. Goals assessed this visit.
--- NOTE | 2018-11-07 16:54 | PT.OTN ---
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 Pt notes that he had been wearing a radio vest at work, which had a small plastic piece which put pressure on his neck right where his pain was, but after taking the plastic piece off, and then stopped wearing the vest entirely, there has still been no change . Pt notes the pain is entirely random, and it comes and goes with no apparent cause. Pt also reports there has been random spasm in his pecs, and he is unable to do anything about it other than just wait until it goes away. Pt does admit he has been dropping items more than normal, but is not actually limited with his job. Prior Treatments and Tests Cervical X-ray: Multiple levels of cervical spine degenerative change are seen, which are most prominent at the C5-C6 and the C6-C7 levels. per Eulalio Kellogg M.D. on 02/20 EMG: Normal study. Findings are not suggestive of a left median nerve lesion at the wrist, a left ulnar nerve lesion at the wrist or elbow no of an acute or chronic C5 through T1 motor nerve root lesion. per Kianna Comer , PT, DSc, ECS on 11/23/17 Treatment Goals Patient/Caregiver Goals Pt's goal is to reduce pain and limit radicular symptoms Prior Functional Status Baseline Function- ADL's Independent Baseline Function- Mobility Independent Current Functional Impairments (Reported) Functional Limitations- Other Increased dropping of items due to radicular symptoms PT-OP-C Subjective Start: 09/06/18 12:47 Freq: Status: Active Protocol: Document 11/07/18 16:41 AW (Rec: 11/07/18 16:54 AW [email or web address]) OP-PT Subjective Patient Comments Patient Comments Hand symptoms are unchanged. Neck sometimes wakes me up at night, but I'm better overall Patient Reported Progress Improving PT-OP-E Functional Tests Start: 09/06/18 12:47 Freq: Status: Active Protocol: Document 09/04/18 16:00 DCW (Rec: 09/06/18 13:17 DCW [id number]) Functional Tests Apley's Scratch Test Action 1- Left WNL Action 1- Right WNL Action 2- Left WNL Action 2- Right WNL Action 3- Left WNL Action 3- Right WNL PT-OP-F Manual Assessment Start: 09/06/18 12:47 Freq: Status: Active Protocol: Document 09/04/18 16:00 DCW (Rec: 09/06/18 13:17 DCW [id number]) Manual Assessments Soft Tissue Assessment Soft Tissue Mobility Assessment Moderate tone and tenderness to palpation 2/4: Pain with wincing - left suboccipitals Severe tone and tenderness to palpation 3/4: Wincing and withdraw - right upper trap, right pec Joint Mobility Assessment Joint Mobility Assessment No increased complaints of tenderness or radicular pain with palpation of C3-T2 PT-OP-K Range of Motion Start: 09/06/18 12:47 Freq: Status: Active Protocol: Document 09/04/18 16:00 DCW (Rec: 09/06/18 13:17 DCW [id number]) Cervical Spine Range of Motion Cervical Spine Active Degrees Testing Position Sitting Flexion 50 Extension 40 Rotation Left 60 Rotation Right 50 Lateral Flexion Left 30 Lateral Flexion Right 30 ROM Limitations Soft Tissue Tightness,Pain Comments Pain at end-range of right rotation, right sidebending, and cervical extension Shoulder Goniometric Range of Motion Shoulder Right Active Shoulder ROM WFL Yes Left Active Shoulder ROM WFL Yes PT-OP-L Special Tests Start: 09/06/18 12:47 Freq: Status: Active Protocol: Document 09/04/18 16:00 DCW (Rec: 09/06/18 13:17 DCW [id number]) Special Tests Cervical Spine Special Tests Upper Limb Tension Test Test Results Negative Traction Test Results Relieves pain Spurling's Test Test Results Negative Slump Test Results Negative Foraminal Compression Test Results Negative Alar Ligament Test Results Negative PT-OP-Q Treatments Start: 09/06/18 12:47 Freq: Status: Active Protocol: Document 11/07/18 16:41 AW (Rec: 11/07/18 16:54 AW [email or web address]) Cardio Equipment Upper Body Ergometer (UBE) Duration (Minutes) 5 RPM 80 Seat Position 12 Height 3 Therapeutic Exercises Prone Exercises cat cow Prone Exercise Name cat cow Side bilateral Reps/Minutes 20 reps Comments for global spinal mobility child pose Prone Exercise Name child pose Side bilateral Reps/Minutes 3x30 seconds Comments cues to keep hips low. walked hands to left for increased R lat stretch prone walkouts Prone Exercise Name prone walkouts Side bilateral Equipment Used 65 cm ball Reps/Minutes 8 reps Comments out and back from ball on chest to ball on knees superman prone extension Prone Exercise Name posterior chain extension Side bilateral Equipment Used 65 cm ball Reps/Minutes 20 sec holds x 6 Comments I's, Y's, and T's Manual Therapy Treatment Soft Tissue Mobilization UT, Lev scap, Body Location UT, lev scap, cervical paraspinals, subocc Mobilization Type Myofascial Release,Sustained Pressure Intensity/Depth Moderate Comments with B cervical rotation PT-OP-R Modalities Start: 09/06/18 12:47 Freq: Status: Active Protocol: Document 09/06/18 13:45 GGD (Rec: 09/06/18 15:14 GGD [email or web address]) Spinal Traction Traction Treatment c/s Method Mechanical Patient Position Hooklying Force Applied (Pounds) 10 Duration of Treatment (Minutes) 10 Ultrasound Therapy Treatment UT Treatment Duration (minutes) 8 Patient Position Prone Coupling Medium Ultrasound Gel Applicator Size (cm2) 5 Frequency Setting (mHz) 1 Mode Setting Continuous Duty Cycle 100% Intensity Setting (w/cm2) 1.5 PT-OP-T Assessment and Plan Start: 09/06/18 12:47 Freq: Status: Active Protocol: Document 11/07/18 16:41 AW (Rec: 11/07/18 16:54 AW [email or web address]) Physical Therapy Assessment Goals Three Impairment Pt has restricted pain-free cervical ROM [facility] Goal (LTG) Pt pain-free cervical ROM to improve to 70? with both flexion and extension, as well as 70? rotation bilaterally 11/05/18: PARTIALLY MET - Pt has pain-free ROM to 60 deg flexion, 50 deg extension, 45 deg R rotation, 50 deg L rotation. LTG Duration 11/05/18 Two Impairment Pt has been dropping tools at work Short Term Goal (STG) Pt to report no dropping of tools for two weeks at work due to decreased radicular symptoms 11/05/18: MET - Pt reports no dropped tools for 3-4 weeks. STG Duration 10/05/18 Assessment Summary Assessment Pt is feeling confident with HEP (upper trap stretch, prayer stretch, GH IR/ER walkouts with bands, child pose stretch, and walking ~3 mi/ day). He feels he has made good progress with pain-free neck ROM but continues to deal with tingling/numbness in bilateral hands (L worse than R). He has tolerated treatment well and now moves with good attention to scapular and cervical posture. He has increased pain free ROM, but continues to have limitations in cervical rotation. Physical Therapy Plan Discharge Physical Therapy Discharge Reasons Goals Met Discharge Comments Pt has made good progress with this plan of care and is indpendent with HEP. He has gained pain-free ROM and exhibits improved attention to scapular and cervical posture .
== END 2018-11-08 12:41 ==
LOC: PHYS 16:00
PROVIDERS: Family Provider Family Medicine; PCP Family Medicine; Visit Provider Psychiatry & Neurology Neurology
DX: M54.12 Radiculopathy, cervical region (principal); M48.02 Spinal stenosis, cervical region; M79.603 Pain in arm, unspecified; M25.50 Pain in unspecified joint; M25.60 Stiffness of unspecified joint, not elsewhere classified
CPT/HCPCS: 97012; 97014; 97110; 97140; 97161; G0283

== ENCOUNTER → 2019-12-16 07:06 | Outpatient (CLI) | payer OTHER, SELFPAY ==
[2019-12-16 08:10] LABS: Add Manual Diff / Slide Review NO; Basophils Absolute Auto 0 /uL (0-100); Basophils Percent Auto 0.6 % (0-2); Eosinophils Absolute Auto 100 /uL (0-450); Eosinophils Percent Auto 1.4 % (2-4); Hematocrit 43.7 % (41-53); Hemoglobin 14.8 g/dL (13.5-17.5); Lymphocytes Absolute Auto 2900 /uL (1100-4500); Lymphocytes Percent Auto 39.8 % (25-40); Mean Corpuscular HGB Conc 33.9 % (30-36); Mean Corpuscular Hemoglobin 31.7 PG (26-34); Mean Corpuscular Volume 93.6 fL (80-100); Monocytes Absolute Auto 600 /uL (0-900); Monocytes Percent Auto 8.3 % (3-14); Neutrophils Absolute Auto 3600 /uL (1500-7000); Neutrophils Percent Auto 49.9 % (50-75); Platelet Count 232 X10^3/uL (150-400); Red Blood Cell Count 4.67 X10^6/uL (4.5-5.9); Red Cell Distribution Width 13.1 % (11.6-14.8); White Blood Cell Count 7.3 X10^3/uL (4.5-11.0)
== END ==
PROVIDERS: Family Provider Family Medicine; PCP Family Medicine; Referring Provider Orthopaedic Surgery; Visit Provider Orthopaedic Surgery
DX: Z01.818 Encounter for other preprocedural examination (principal); Z01.812 Encounter for preprocedural laboratory examination
CPT/HCPCS: 36415; 85025; 93005

== ENCOUNTER → 2020-01-11 08:24 | Outpatient (CLI) | payer OTHER, SELFPAY ==
[2020-01-11 09:44] LABS: COVID19 -Nasal RAPID Negative (Negative)
== END ==
PROVIDERS: Family Provider Family Medicine; PCP Family Medicine; Visit Provider Nurse Practitioner
DX: Z11.59 Encounter for screening for other viral diseases (principal)
CPT/HCPCS: 87635

== ENCOUNTER 2020-01-14 08:13 | Inpatient (IN) | payer OTHER, SELFPAY ==
[2020-01-03 11:51] VITALS: BMI 28.3
[2020-01-14] VITALS (17 sets, daily range): BP systolic 111–164; BP diastolic 76–102; PULSE 69–82; RESP 11–26; TEMP 36–36.7; O2SAT 95–99; BMI 28.3
--- NOTE | 2020-01-14 | DI.RAD.S_ITS ---
PROCEDURE: XR CERVICAL SPINE 2V OR 3V INDICATIONS: C5-6, C6-7 ACDF TECHNIQUE: 2 intraoperative spot fluoroscopic images of the cervical spine were acquired. COMPARISON: [facility] KINZA Carranza, XR CERVICAL SPINE 2 OR 3 VIEWS, 04/17/2019, 9:27. FINDINGS: Bones: Spot intraoperative images demonstrate surgical devices at the C5-6 and C6-7 levels anteriorly. Cervical alignment is maintained. Soft tissues: No prevertebral soft tissue swelling. IMPRESSION: Intraoperative images demonstrate surgical changes at the C5-6 and C6-7 disc space levels. Dictated by: Wilman Moody M.D. on 01/14/2020 at 11:05 Approved by: Wilman Moody M.D. on 01/14/2020 at 11:07
[2020-01-14] MEDS: ACETAMINOPHEN 325 MG TABLET 975 MG PO (08:47)
[2020-01-14] MEDS: LACTATED RINGERS 1,000 ML 42 ML IV ×2 (08:48→12:13)
--- NOTE | 2020-01-14 09:08 | PM.PREOP ---
Pre-operative Note COVID-19 COVID-19 status: Negative Result date/Date tested (Pos, Neg/Pending): 01/11/20 Interval Note History & Physical reviewed/Exam performed by Physician: Yes Changes to H&P: No
[2020-01-14] MEDS: SCOPOLAMINE 1 PATCH TOP (09:35)
[2020-01-14] MEDS: CEFAZOLIN 2 GM/100 ML FROZ.PIGGY IV ×2 (09:54→17:36)
--- NOTE | 2020-01-14 10:23 | SUR.OPER ---
Supine on padded OR bed, head on pillow, arm padded and tucked at side, legs uncrossed, safety belt at thigh, tape over blanket over lower legs .
[2020-01-14] MEDS: THROMBIN (RECOMBINANT) 5,000 UNIT VIAL 5000 UNIT TOP (10:27)
[2020-01-14] MEDS: BUPIVACAINE 0.25% W/ EPI (PF) 10 ML VIAL 20 ML INJ (10:28)
[2020-01-14] MEDS: SODIUM CHLORIDE 0.9% 1,000 ML, GENTAMICIN 80 MG IRR (10:28)
--- NOTE | 2020-01-14 11:25 | P.OP_ITS ---
Operative Date/Time/Diagnoses Date of procedure: 01/14/20 Time of procedure: 11:26 Pre-op diagnosis: Cervical stenosis with myelopathy Post-op diagnosis: same Procedure & Clinicians Procedure: C5-6, C6-7 ACDF with cages Iliac crest bone graft aspirate Use of microscope Same procedure as scheduled: Yes Indications: [age] year old male with intractable pain from stenosis. They had failed conservative management and requested operative intervention. Risks and benefits of surgery were discussed and appropriate consents were obtained. Surgeon: Miguel Ángel Khan Outreach Team Member: Gabriella Jerome Anesthesia Type: General Operative Notes Findings: None Closure Type: primary Specimen(s): none sent Prosthetic devices, grafts, tissues, transplants, or devices: Misa CARMEN-C Estimated Blood Loss (mL): 10 Procedure in detail: Patient was brought to the operating room and intubated on the table. A time-out was performed. Preoperative antibiotics were given. The neck was prepped and draped in the standard sterile fashion. Using a skin fold, we made a 3 cm oblique incision on the left side. We used Bovie to go through the platysma and then did a standard anterolateral blunt dissection down to the precervical fascia. Fascia was nicked and elevated up. A marker was placed and x-ray was taken for localization. We then subperiosteally elevated up the longus colli muscles. Self-retaining retractors were placed. Sullivan pins were placed. We then brought in the microscope. A scalpel used to perform an annulotomy. We then used a combination of pituitaries and curettes and Kerrison to perform a complete anterior diskectomy at C6-7. We used the bur to take down the posterior osteophytes. We took down the PLL and used Kerrison to remove any posterior disc material and osteophytes. At the end we could from the nerve hook cephalad caudally and out the foramen and everything was opened. A small stab incision was made over the left anterior iliac crest. A Jamshidi needle was advanced into the pelvis and 2 mL of bone marrow was aspirated. We then used the trials. We then packed a 14 x 17 x 6 mm CARMEN-C cage with Primagen bone graft and the iliac crest harvest. The cage was placed under fluoroscopic guidance. We then placed our two locking plates. We then moved our retractors up to the C5-6 level. An annulotomy was performed. We then did a diskectomy with pituitaries and Kerrisons. We used the bur to remove the posterior osteophytes and decorticate the endplates. We took down the PLL and removed any remaining posterior disc material and osteophytes. The nerve hook was used to confirm everything was open. We then trialed and placed another 14 x 17 x 6 mm cage with bone graft into the C5-6 space. The locking plates were impacted into the cage. The wound was irrigated. The self-retaining retractors and Sullivan pins were removed and final x-rays taken. The wound was irrigated. There was no bleeding. The carotid was beating nicely. The platysma was closed. The superficial was closed. The skin was closed. A sterile dressing was placed. They were then extubated and brought to recovery room with no complications. Complications: none Post-operative Condition: stable Disposition: PACU Plan for aftercare: Inpatient overnight. Up with therapy. Soft collar for comfort.
[2020-01-14] MEDS: ONDANSETRON 4 MG/2 ML INJ IV (11:45)
[2020-01-14] MEDS: HYDROMORPHONE 2 MG INJ IV ×2 (11:45→11:56)
[2020-01-14] MEDS: OXYCODONE IR 5 MG TABLET PO (12:04)
[2020-01-14] MEDS: LACTATED RINGERS 1,000 ML 125 ML IV ×2 (12:36→22:36)
[2020-01-14] MEDS: HYDROMORPHONE 0.5 MG INJ IV (12:44)
[2020-01-14] MEDS: CELECOXIB 200 MG CAPSULE 400 MG PO (12:45)
--- NOTE | 2020-01-14 13:45 | PT.IIE ---
Current Diagnoses Spinal stenosis, cervical region (01/14/20) Surgery Performed Operation Date: 01/14/20 09:45 Actual Procedures p C5-6 and C6-7 anterior cervical discectomy and fusion with bone graft - Miguel Ángel Khan MD Surgical History (Last Updated 01/03/20 @ 12:08 by Ml Sosa, RN) History of vasectomy Hx of appendectomy (~1965) Hx of hernia repair (~2010) Medical History (Last Updated 01/03/20 @ 12:08 by Ml Sosa RN) Elevated cholesterol Hearing loss HTN (hypertension) Melanoma (~2015) Numbness and tingling in left hand Tinnitus Physical Therapy Inpatient Evaluation/Re-Eval M1 PT/OT-IP Prior Functional Status Start: 01/14/20 13:49 Freq: NEEDED Status: Active Protocol: Document 01/14/20 13:49 [facility] (Rec: 01/14/20 14:15 [facility] [id number]) Medical Review Prior Functional Status Diet/Fluid Consistency Regular,Thin Liquids Communication Independent. Mobility and Gait Pt states walks 3-4 miles daily and does not use any devices. Activities of Daily Living and IADL's Completely independent with all ADl, IADL, and driving. 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 Social History Household Members spouse Living Arrangements House Number of Floors (Floors) Two Floors Number of Stairs To Enter/Railing? Pt has a split level house with zero steps from the garage and able to stay on that lower level which has a spare bedroom and bathroom. Otherwsie from that lower level are 5 steps with right hand rail, a landing, and another 5 steps with right rail to the main level of where his bedroom, bathroom, kitchen and living areas area loctaed. Pt states plans to stay on the lower level and has a recliner and bed downstairs to sleep on. Home Environment Standard Height Toilet,Walk in Shower,Tub/Shower Additional Social History Comment Pt states has no devices at home. M1 PT/OT-IP Prior Functional Status Start: 01/14/20 15:17 Freq: NEEDED Status: Active Protocol: Document 01/14/20 13:45 AB (Rec: 01/14/20 15:34 AB [id number]) Medical Review Prior Functional Status Diet/Fluid Consistency Regular,Thin Liquids Communication able to make needs known Mobility and Gait pt stated that he is independent with all mobilities and ambulation without AD Activities of Daily Living and IADL's Independent Social History Household Members spouse Living Arrangements House Number of Floors (Floors) Two Floors Number of Stairs To Enter/Railing? 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 M2 PT-IP Current Condition Start: 01/14/20 15:17 Freq: NEEDED Status: Active Protocol: Document 01/14/20 13:45 AB (Rec: 01/14/20 15:34 AB [id number]) Physical Therapy Current Condition Current Condition Evaluation Date 01/14/20 Treatment Diagnosis C5-6,C6-7 ACDF; difficulty in walking Onset Date 01/14/20 Precautions Cervical Spine Precautions Soft Collar for Comfort,No Heavy Lifting,Log Roll M3 PT-IP Subjective Start: 01/14/20 15:17 Freq: NEEDED Status: Active Protocol: Document 01/14/20 13:45 AB (Rec: 01/14/20 15:34 AB [id number]) Subjective Physical Therapy Visit Type Type Initial Evaluation Visit Start Time 13:45 Visit Stop Time 14:24 Total Visit Minutes 39 Number of CUPOLA MELTER HELPER Visits 0 Physical Therapy Visit Comments Patient Comments pt is agreeable to do PT Therapy Pain Assessment Pain When Pain Assessed At Rest Pain Present Pain Present Pain Reported Location Upper Neck Intensity 7 Scale Used Numeric (0 - 10) Pain Management Techniques Apply Cold,Distraction,Re- positioning,Timing of Activity with Medications M4 PT-IP Mobility and Gait Start: 01/14/20 15:17 Freq: NEEDED Status: Active Protocol: Document 01/14/20 13:45 AB (Rec: 01/14/20 15:34 AB [id number]) PT-Bed Mobility Assessment Supine to Sit Supine to Sit Standby Assistance Sit to Supine Sit to Supine Standby Assistance PT-Transfer Assessment Sit to and From Stand Sit to and from Stand Contact Guard Assistance,Use of Upper Extremities Equipment Transfer Assistive Device None,Gait Belt Orthotic/Prosthetic Devices or Brace: Yes Transfers Transfer Destination Bed Transfer Technique ambulated without AD Transfer Ability Level of Assist Contact Guard Assistance,Use of Upper Extremities Comments Mobility Comments reviewed cervical precautions and log roll bed mobility with pt. pt completed sit to stand from chair SBA. ambulated in room without AD CGA ~ 20 ft. presents with unsteady gait . c/o feeling oozy. BP 165/98. nurse is aware of increase BP. pt ambulated to the bed. completed log roll supine <> sit SBA with cues for log roll . pt initially wanted to just stay up on the chair but then requested to go back to bed. completed sit to supine SBA. positioned in bed. call light and table placed wtihin reach . Gait Assessment Gait Gait Assistance Required: Contact Guard Assist Distance (Feet) 20 Able to Maintain Weight Bearing Status Yes During Gait Assistive Devices Assistive Device None,Gait Belt Orthotic/Prosthetic Devices or Brace: Yes Gait Deviations General Gait Pattern Antalgic,Decreased Stride Length,Decreased Feet Clearance,Step-to Gait Factors Limiting Gait Function Factors Limiting Gait Function Decreased Activity Tolerance, Decreased Strength,Limited Range of Motion,Pain,Poor Balance PT-Balance Assessment Sitting Balance and Reactions Static Sitting Balance Ability Normal Dynamic Sitting Balance Ability Good Standing Balance and Reactions Static Standing Balance Ability Good Dynamic Standing Balance Ability Fair Device Used without AD M5 PT-IP Objective Assessments Start: 01/14/20 15:17 Freq: NEEDED Status: Active Protocol: Document 01/14/20 13:45 AB (Rec: 01/14/20 15:34 AB [id number]) Orientation Orientation/Cognition Orientation Name,Age,Birthday,Month,Date, Year,Day of Week,Place, Situation Language Function Ability No Deficits Noted Safety Awareness Decreased Safety Awareness Memory Description Short Term Impaired Gross Range of Motion Lower Extremity ROM Assessment Within Functional Limits Strength Lower Extremity Strength Assessment Within Functional Limits Muscle Tone Muscle Tone WNL Yes M6 PT-IP Treatment Start: 01/14/20 15:17 Freq: NEEDED Status: Active Protocol: Document 01/14/20 13:45 AB (Rec: 01/14/20 15:34 AB [email or web address]) Physical Therapy Treatment Education Education Provided Precautions,Safety M7 PT-IP Assessment and Plan Start: 01/14/20 15:17 Freq: NEEDED Status: Active Protocol: Document 01/14/20 13:45 AB (Rec: 01/14/20 15:34 AB [email or web address]) PT Summary Assessment and Plan Potential Rehabilitation Potential Good Status of Condition at Evaluation Stable Summary Impairments Pain,ROM,Strength,Balance, Coordination,Sensation,Bed Mobility,Transfers,Gait, Activity Tolerance Assessment Summary pt s/p ACDF and just had surgery this morning. pt requiring CGA with ambulation without AD and plans to go home with spouse to assist him . pt c/o feeling oozy during mobility affecting ambulation. will continue to assess mobility for safe d/c plan. Goals Bed Mobility Goal Independent Transfer Goal Independent Gait Goal Independent Gait Distance 200 Days to Meet Goals 3 Frequency of Treatment Frequency Of Treatment Twice a Day Treatment Plan Physical Therapy Treatment Plan Bed Mobility Training,Transfer Training,Gait Training, Therapeutic Exercise,Balance Retraining,Post Op Education, Discharge Planning,Hot or Cold Pack,Neuromuscular Re-ed, Coordination Retraining,Manual Therapy Recommendations To Nursing Amount of Assist Needed 1 Person Assist Discharge Recommendations PT Discharge Recommendations Home with Assistance Transportation Needs at Discharge Private Vehicle
--- NOTE | 2020-01-14 13:47 | OT.IP.EVAL ---
Current Diagnoses Spinal stenosis, cervical region (01/14/20) Surgery Performed Operation Date: 01/14/20 09:45 Actual Procedures p C5-6 and C6-7 anterior cervical discectomy and fusion with bone graft - Miguel Ángel Khan MD Past Medical History (Last Updated 01/03/20 @ 12:08 by Ml Sosa, RN) Elevated cholesterol Hearing loss HTN (hypertension) Melanoma (~2015) Numbness and tingling in left hand Tinnitus Surgical History (Last Updated 01/03/20 @ 12:08 by Ml Sosa RN) History of vasectomy Hx of appendectomy (~1965) Hx of hernia repair (~2010) Occupational Therapy Inpatient Evaluation/Re-Eval M1 PT/OT-IP Prior Functional Status Start: 01/14/20 13:49 Freq: NEEDED Status: Active Protocol: Document 01/14/20 13:49 [facility] (Rec: 01/14/20 14:15 [facility] [id number]) Medical Review Prior Functional Status Diet/Fluid Consistency Regular,Thin Liquids Communication Independent. Mobility and Gait Pt states walks 3-4 miles daily and does not use any devices. Activities of Daily Living and IADL's Completely independent with all ADl, IADL, and driving. 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 Social History Household Members spouse Living Arrangements House Number of Floors (Floors) Two Floors Number of Stairs To Enter/Railing? Pt has a split level house with zero steps from the garage and able to stay on that lower level which has a spare bedroom and bathroom. Otherwise from that lower level are 5 steps with right hand rail, a landing, and another 5 steps with right rail to the main level of where his bedroom, bathroom, kitchen and living areas area located. Pt states plans to stay on the lower level and has a recliner or bed downstairs to sleep on. Home Environment Standard Height Toilet,Walk in Shower,Tub/Shower Additional Social History Comment Pt states has no devices at home. M2 OT-IP Current Condition Start: 01/14/20 13:49 Freq: Status: Active Protocol: Document 01/14/20 13:49 [facility] (Rec: 01/14/20 14:15 [facility] [id number]) Occupational Therapy Current Condition Current Condition Evaluation Date 12/01/20 Treatment Diagnosis s/p c5-6, C6-7 acDf with cages and bone graft Diagnosis Onset Date 01/14/20 Post Operative Precautions Cervical Spine Precautions Soft Collar for Comfort,No Heavy Lifting,Log Roll M3 OT- IP Subjective and Pain Start: 01/14/20 13:49 Freq: Status: Active Protocol: Document 01/14/20 13:49 [facility] (Rec: 01/14/20 14:15 [facility] [id number]) OT- Subjective Occupational Therapy Visit Type Type Initial Evaluation Visit Start Time 13:05 Visit Stop Time 13:47 Total Visit Minutes 42 Occupational Therapy Visit Comments Patient Comments Pt agreed to get up for OT eval. Patient/Caregiver Goals To go home. OT Pain Assessment Pain When Pain Assessed At Rest Pain Present Pain Present Pain Reported Location Upper Neck Intensity 6 Scale Used Numeric (0 - 10) M4 OT- IP ADL's Start: 01/14/20 13:49 Freq: Status: Active Protocol: Document 01/14/20 13:49 [facility] (Rec: 01/14/20 14:15 [facility] [id number]) OT [id number] Comments OT Self-Feeding Comments Pt able to eat a popsicle on his own. Educated on strategies after ACDF for swallowing needs for pt, pt able to states good understanding. OT ADL-Grooming Comments OT Grooming Comments Not performed as BP too high at this time. Therapist able to adjust his soft collar, to practice with pt tomorrow when bp more appropriate. OT ADL-Oral Care Comments Oral Care Comments Not performed as BP too high at this time. Educated best to spit into a cup to best follow his cervical precautions. OT ADL-Dressing General Eval Lower Body Dressing Ability Standby Assistance Comments OT Dressing Comments Pt able to comfortably sit and cross his legs over to elli the socks. OT ADL-Toileting Comments OT Toileting Comments Pt not having to go. Educated pt on being mindful of his head position late if having to use the toilet. OT ADL-Bathing Comments OT Bathing Comments Not performed. Pt states has a built in seat upstairs in the walk in shower. Otherwise pt may benefit from a shower chair. M5 OT- IP IADL's Start: 01/14/20 13:49 Freq: Status: Active Protocol: Document 01/14/20 13:49 [facility] (Rec: 01/14/20 14:15 [facility] [id number]) OT-Instrumental Activities of Daily Living Home Safety Awareness Home Safety Comments Pt's to be there to assist for needs. Medication Management Medication Management Comments Educated initially to have his supervise as pain medications can possible make him groggy and not think well. Money Management Money Management Comments Educated initially to have his supervise as pain medications can possible make him groggy and not think well. Meal Preparation Meal Preparation Caregiver Provides Assist Answerer Answerer Caregiver Provides Assist M6 OT- IP Functional Cognition Start: 01/14/20 13:49 Freq: Status: Active Protocol: Document 01/14/20 13:49 [facility] (Rec: 01/14/20 14:15 [facility] [id number]) Cognitive Factors Limiting Selfcare Function Cognitive Ability Level of Alertness Alert Patient Orientation Name,Age,Birthday,Month,Date, Year,Day of Week,Place, Situation Attention Span Ability Capable of Focused Attention, Capable of Sustained Attention Ability to Follow Commands Able to Follow One Step Commands Memory Description No Deficits Noted Problem Solving Ability No deficits Noted Cognitive Comments Cognitive Assessment Comments Pt appears to have no cognitive deficits at this time. Pt mildly [place] which may be due to therapist having to wear a face mask. OT- Vision and Hearing OT- Vision Assessment Visual Acuity Glasses For Reading M7 OT- IP Mobility and Balance Start: 01/14/20 13:49 Freq: Status: Active Protocol: Document 01/14/20 13:49 [facility] (Rec: 01/14/20 14:15 [facility] [id number]) OT- Bed Mobility Assessment Rolling Type of Rolling Roll to Right Level of Assistance Standby Assistance Supine to Sit Supine to Sit Assist Standby Assistance Scooting Scooting to Edge of Bed Standby Assistance OT-Transfer Assessment Sit to and From Stand Sit to and from Stand Contact Guard Assistance Transfers Transfer Ability Minimal Assistance Technique Transfer Destination Bed,Chair Transfer Technique Stand Step Pivot Devices Transfer Assistive Devices None,Gait Belt Comments Mobility Comments Pt's bp supine 160/95, sitting 166/116, nursing notified and came in to talk to the pt as pt non symptomatic and nurse okayed for therapist to just transfer pt to the recliner for now. BP after transfer 178/96. Pt able to stand with cga and RENA for steadying to transfer to the recliner. Educated pt to use the call light if having to get up, nursing also notified. OT- Gait Assessment Comments Gait Ability Comments Not at this time. OT- Balance Assessment Sitting Balance and Reactions Static Sitting Balance Ability Normal Dynamic Sitting Balance Ability Normal Standing Balance and Reactions Static Standing Balance Ability Fair M8 OT- IP Objective Assessments Start: 01/14/20 13:49 Freq: Status: Active Protocol: Document 01/14/20 13:49 [facility] (Rec: 01/14/20 14:15 [facility] [id number]) OT Gross Range of Motion Upper Extremity Range of Motion Assessment Within Functional Limits OT-Muscle Tone Assessment Muscle Tone WNL Yes OT Sensation Assessment Comments Summary Comments Pt states has less tingling in left hand now versus prior to his surgery. M9 OT- IP Assessment and Plan Start: 01/14/20 13:49 Freq: Status: Active Protocol: Document 01/14/20 13:49 [facility] (Rec: 01/14/20 14:15 [facility] [id number]) OT Summary Assessment and Plan Potential Rehabilitation Potential Excellent Analytic Complexity at Evaluation Low Summary OT Impairments Pain,Functional Mobility, Grooming,Dressing,Toileting, Bathing,Toilet Transfers, Shower Transfers,Activity Tolerance Progress Towards Goals Slow Progress due to Medical Issues Assessment Summary Pt s/p C5-6, c 6-7 ACDF today and main barriers are steps, having increased BP and a little unsteady on his feet at this time as just having surgery earlier this morning. Pt has a supportive that can assist him but not able to do any heavy lifting. Pending pt's medical progress looking to go home with his . Pt may benefit from and FWW and shower chair. Goals Self-Feeding Goal Independent Grooming Goal Independent Dressing Goal Independent Toileting Goal Independent,Contact Guard Assistance Toilet Transfer Goal Independent Shower Transfer Goal Independent Patient/Caregiver Education Goal Demonstrate Post-Op Precautions,Caregiver Independent Assisting Patient Days to Meet Goals 3 Frequency of Treatment Frequency Of Treatment Once a Day Treatment Plan OT Treatment Plan ADL Training,Functional Mobility,Patient/Family Education,Discharge Planning Other Treatment Recommendations and Next Shower Treatment Focus Discharge Recommendations OT Discharge Recommendations Home with Assistance Home Equipment Needs shower chair, possibly FWW? Transportation Needs at Discharge Private Vehicle
[2020-01-14] MEDS: HYDROCODONE/ACET 5/325 TABLET 2 TAB PO ×2 (14:05→19:00)
--- NOTE | 2020-01-14 14:27 | PC.ADMIT ---
[id number] Admission Note: Safe hand off from PACU, Patient arrived on floor via portable bed. Pt has some pain 7/10, IV dilaudid 0.5mg given, pain continues to be 7/10. Patient had PO [place] at 1405, will continue to monitor to see if pain improves. Patient is hypertensive 157/98. Dr. Khan aware of hypertension. Lung sound are clear and bowel tones are active. Patient in on LR@125. Patient is able to tolerate PO intake. No complaints of nausea. Bed is low and locked, call light within reach, bed alarm is active. The patient,Matt Montero,64 y/o, was given written information regarding hospital policies, unit procedures and contact persons. Patient's smoking status: Former smoker. Vital Signs - 8 hr 01/14/20 08:31 01/14/20 11:35 01/14/20 11:40 Temperature 98.0 F 96.8 F L Pulse Rate 81 82 78 Respiratory Rate 16 16 13 Blood Pressure 149/92 H 113/81 111/76 Pulse Oximetry 99 97 96 01/14/20 11:45 01/14/20 11:49 01/14/20 11:54 Temperature Pulse Rate 74 72 72 Respiratory Rate 16 11 L 11 L Blood Pressure 127/83 134/93 H 135/86 Pulse Oximetry 97 96 95 01/14/20 12:04 01/14/20 12:09 01/14/20 12:14 Temperature Pulse Rate 74 69 71 Respiratory Rate 11 L 11 L 26 H Blood Pressure 138/87 140/88 140/92 H Pulse Oximetry 97 96 95 01/14/20 12:28 01/14/20 13:00 01/14/20 13:30 Temperature 97.0 F L 96.8 F L 97.1 F L Pulse Rate 70 77 75 Respiratory Rate 15 16 15 Blood Pressure 152/92 H 160/95 H 164/102 H Pulse Oximetry 97 99 98
[2020-01-14] MEDS: BENZOCAINE/MENTHOL 1 LOZ PKT 1 EACH PO ×2 (19:00→22:03)
[2020-01-14] MEDS: SENNOSIDES 8.6 MG TABLET 17.2 MG PO (21:59)
[2020-01-14] MEDS: DOCUSATE 100 MG CAPSULE PO (22:00)
[2020-01-14] MEDS: GABAPENTIN 300 MG CAPSULE PO (22:00)
[2020-01-14] MEDS: CELECOXIB 200 MG CAPSULE PO (22:00)
[2020-01-15] MEDS: CEFAZOLIN 2 GM/100 ML FROZ.PIGGY IV (01:24)
[2020-01-15] MEDS: HYDROCODONE/ACET 5/325 TABLET 2 TAB PO (01:25)
[2020-01-15 05:27] VITALS: BP 154/90; PULSE 71; RESP 16; TEMP 36.1; O2SAT 99
--- NOTE | 2020-01-15 07:44 | P.PN_ITS ---
Subjective Subjective Date Patient Seen: 01/15/20 Time Patient Seen: 07:44 Interval history: He is doing very well. Minimal discomfort. Exam Vital Signs (past 8 hours): - 01/14/20 23:47 01/15/20 05:27 Temperature 97.9 F 97.0 F L Pulse Rate 69 71 Respiratory Rate 16 16 Blood Pressure 144/93 H 154/90 H Pulse Oximetry 99 99 Oxygen Delivery Method Room Air Oxygen Flow Rate 0 Const Orientation: alert and oriented x3 Back/Spine/Pelvis Other: CDI. 5/5 motor both upper extremities. Still some slight decreased sensation on the left index [facility] Medical History Elevated cholesterol Hearing loss HTN (hypertension) Melanoma (~2015) Numbness and tingling in left hand Tinnitus Surgical History (Updated 01/03/20 @ 12:08 by Ml Sosa RN) History of vasectomy Hx of appendectomy (~1965) Hx of hernia repair (~2010) Social History household members: spouse Smoking Status: Former smoker alcohol intake: current Assessment & Plan Post-op Postoperative Procedures: Procedures Operation Date: 01/14/20 09:45 Actual Procedures Side Surgeon p C5-6 and C6-7 anterior cervical discectomy and fusion with bone graft Miguel Ángel Khan MD He is doing well. Plan for discharge home Quality VTE Deep Vein Thrombosis/Pulmonary Embolism Present on Admission: No
[2020-01-15 08:00] VITALS: BP 155/93; PULSE 69; RESP 20; O2SAT 97
--- NOTE | 2020-01-15 09:15 | PT.IPTN ---
Current Diagnoses Spinal stenosis, cervical region (01/14/20) Surgery Performed Operation Date: 01/14/20 09:45 Actual Procedures p C5-6 and C6-7 anterior cervical discectomy and fusion with bone graft - Miguel Ángel Khan MD Physical Therapy Treatment Note M2 PT-IP Current Condition Start: 01/14/20 15:17 Freq: NEEDED Status: Active Protocol: Document 01/14/20 13:45 AB (Rec: 01/14/20 15:34 AB [id number]) Physical Therapy Current Condition Current Condition Evaluation Date 01/14/20 Treatment Diagnosis C5-6,C6-7 ACDF; difficulty in walking Onset Date 01/14/20 Precautions Cervical Spine Precautions Soft Collar for Comfort,No Heavy Lifting,Log Roll M3 PT-IP Subjective Start: 01/14/20 15:17 Freq: NEEDED Status: Active Protocol: Document 01/15/20 09:15 AB (Rec: 01/15/20 10:29 AB [email or web address]) Subjective Physical Therapy Visit Type Type Treatment Note Visit Start Time 09:15 Visit Stop Time 09:27 Total Visit Minutes 12 Number of [employer] Visits 0 Physical Therapy Visit Comments Patient Comments agreeable to do PT Therapy Pain Assessment Pain When Pain Assessed At Rest Pain Present Pain Present Pain Reported Location Upper Neck Intensity 4 M4 PT-IP Mobility and Gait Start: 01/14/20 15:17 Freq: NEEDED Status: Active Protocol: Document 01/15/20 09:15 AB (Rec: 01/15/20 10:29 AB [id number]) PT-Bed Mobility Assessment Rolling Type of Rolling Log Rolling Level of Assist Standby Assistance Supine to Sit Supine to Sit Standby Assistance Sit to Supine Sit to Supine Standby Assistance PT-Transfer Assessment Sit to and From Stand Sit to and from Stand Standby Assistance Equipment Transfer Assistive Device None,Gait Belt Orthotic/Prosthetic Devices or Brace: Yes Transfers Transfer Destination Bed,Chair Transfer Technique Stand Step Pivot Transfer Ability Level of Assist Standby Assistance Comments Mobility Comments pt sitting on chair and agreeable to do PT. completed step transfer to bed SBA and demonstrated bed mobility log roll supine<>sit SBA. ambulated in the hallway 100 ft without AD SBA and completed up/down steps using bilateral rails SBA and then just L rail SBA. ambulated back to his room SBA without AD and sat back on chair. pt without any other concerns. stated that he was able to mange his soft collar without any problems Gait Assessment Gait Gait Assistance Required: Standby Assistance Distance (Feet) 100 Able to Maintain Weight Bearing Status Yes During Gait Assistive Devices Assistive Device None,Gait Belt Orthotic/Prosthetic Devices or Brace: Yes Factors Limiting Gait Function Factors Limiting Gait Function Decreased Activity Tolerance, Limited Range of Motion,Pain, Poor Balance Stair Climbing Assessment Evaluation Level of Assist On Stairs Standby Assistance Devices Stair Climbing Assistive Devices Left Railing,Right Railing Technique/Endurance Stair Climbing Direction Ascend and Descend Stair Climbing Technique Step Over Step Number of Steps Climbed 2 Comments Stair Climbing Comments pls refer to mobility section for details M5 PT-IP Objective Assessments Start: 01/14/20 15:17 Freq: NEEDED Status: Active Protocol: Document 01/14/20 13:45 AB (Rec: 01/14/20 15:34 AB [id number]) Orientation Orientation/Cognition Orientation Name,Age,Birthday,Month,Date, Year,Day of Week,Place, Situation Language Function Ability No Deficits Noted Safety Awareness Decreased Safety Awareness Memory Description Short Term Impaired Gross Range of Motion Lower Extremity ROM Assessment Within Functional Limits Strength Lower Extremity Strength Assessment Within Functional Limits Muscle Tone Muscle Tone WNL Yes M6 PT-IP Treatment Start: 01/14/20 15:17 Freq: NEEDED Status: Active Protocol: Document 01/15/20 09:15 AB (Rec: 01/15/20 10:29 AB [id number]) Physical Therapy Treatment Education Education Provided Precautions,Safety M7 PT-IP Assessment and Plan Start: 01/14/20 15:17 Freq: NEEDED Status: Active Protocol: Document 01/15/20 09:15 AB (Rec: 01/15/20 10:29 [email or web address] PT Summary Assessment and Plan Potential Rehabilitation Potential Good Summary Impairments Pain,ROM,Strength,Balance,Bed Mobility,Transfers,Gait, Activity Tolerance Progress Towards Goals Progressing Toward Goals Assessment Summary pt is doing well with mobility and plans to go home with his spouse to assist him. pt may go home when medically stable . Goals Bed Mobility Goal Independent Transfer Goal Independent Gait Goal Independent Gait Distance 200 Days to Meet Goals 3 Frequency of Treatment Frequency Of Treatment Twice a Day Treatment Plan Physical Therapy Treatment Plan Bed Mobility Training,Transfer Training,Gait Training, Therapeutic Exercise,Balance Retraining,Post Op Education, Discharge Planning,Hot or Cold Pack,Neuromuscular Re-ed, Coordination Retraining,Manual Therapy Recommendations To Nursing Amount of Assist Needed Standby Assistance Discharge Recommendations PT Discharge Recommendations Home with Assistance Transportation Needs at Discharge Private Vehicle
--- NOTE | 2020-01-15 09:17 | OT.IP.TRT ---
Current Diagnoses Spinal stenosis, cervical region (01/14/20) Surgery Performed Operation Date: 01/14/20 09:45 Actual Procedures p C5-6 and C6-7 anterior cervical discectomy and fusion with bone graft - Miguel Ángel Khan MD Occupational Therapy Treatment Note M2 OT-IP Current Condition Start: 01/14/20 13:49 Freq: Status: Active Protocol: Document 01/14/20 13:49 [facility] (Rec: 01/14/20 14:15 [facility] [id number]) Occupational Therapy Current Condition Current Condition Evaluation Date 01/14/20 Treatment Diagnosis s/p c5-6, C6-7 acDf with cages and bone graft Diagnosis Onset Date 01/14/20 Post Operative Precautions Cervical Spine Precautions Soft Collar for Comfort,No Heavy Lifting,Log Roll M3 OT- IP Subjective and Pain Start: 01/14/20 13:49 Freq: Status: Active Protocol: Document 01/15/20 10:16 [facility] (Rec: 01/15/20 10:25 [facility] [id number]) OT- Subjective Occupational Therapy Visit Type Type Treatment Note Visit Start Time 08:54 Visit Stop Time 09:17 Total Visit Minutes 23 Occupational Therapy Visit Comments Patient Comments Pt agreed to get dressed and work with OT. Patient/Caregiver Goals To go home. OT Pain Assessment Pain When Pain Assessed At Rest Pain Present Pain Present Pain Reported Location Upper Neck Intensity 4 Scale Used Numeric (0 - 10) M4 OT- IP ADL's Start: 01/14/20 13:49 Freq: Status: Active Protocol: Document 01/15/20 10:16 [facility] (Rec: 01/15/20 10:25 [facility] [id number]) OT BTZ-Yozn-Zwxltst General Evaluation Self-Feeding Ability Independent OT ADL-Grooming General Evaluation Grooming Ability Independent Comments OT Grooming Comments Pt able to incorporate cervial precautions with good safety for grooming needs. OT ADL-Oral Care General Eval Oral Care Ability Independent OT ADL-Dressing General Eval Upper Body Dressing Ability Independent Lower Body Dressing Ability Independent Comments OT Dressing Comments Pt able to show good safety for all needs for dressing. OT ADL-Toileting Comments OT Toileting Comments Pt not having to go. OT ADL-Bathing Comments OT Bathing Comments Pt states to shower at home. M5 OT- IP IADL's Start: 01/14/20 13:49 Freq: Status: Active Protocol: Document 01/15/20 10:16 [facility] (Rec: 01/15/20 10:25 [facility] [id number]) OT-Instrumental Activities of Daily Living Home Safety Awareness Home Safety Comments Pt's to be there to assist for needs as needed. M6 OT- IP Functional Cognition Start: 01/14/20 13:49 Freq: Status: Active Protocol: Document 01/15/20 10:16 [facility] (Rec: 01/15/20 10:25 [facility] [id number]) Cognitive Factors Limiting Selfcare Function Cognitive Ability Level of Alertness Alert Patient Orientation Name,Age,Birthday,Month,Date, Year,Day of Week,Place, Situation Attention Span Ability Capable of Focused Attention, Capable of Sustained Attention Ability to Follow Commands Able to Follow Multi-Step Commands Memory Description No Deficits Noted Safety Awareness Underestimates Need for Assistance Problem Solving Ability No deficits Noted Cognitive Comments Cognitive Assessment Comments Pt mainly just needing cues to slow down. M7 OT- IP Mobility and Balance Start: 01/14/20 13:49 Freq: Status: Active Protocol: Document 01/15/20 10:16 [facility] (Rec: 01/15/20 10:25 [facility] [id number]) OT- Bed Mobility Assessment Rolling Type of Rolling Roll to Right Level of Assistance Independent Supine to Sit Supine to Sit Assist Independent OT-Transfer Assessment Sit to and From Stand Sit to and from Stand Independent Transfers Transfer Ability Independent Technique Transfer Destination Bed,Chair Transfer Technique Stand Step Pivot Devices Transfer Assistive Devices None,Gait Belt Comments Mobility Comments Pt able to move independently in the room. BP 136/78 today. OT- Gait Assessment Comments Gait Ability Comments Pt independent in the room. OT- Balance Assessment Sitting Balance and Reactions Static Sitting Balance Ability Normal Dynamic Sitting Balance Ability Normal Standing Balance and Reactions Static Standing Balance Ability Normal Dynamic Standing Balance Ability Good M8 OT- IP Objective Assessments Start: 01/14/20 13:49 Freq: Status: Active Protocol: Document 01/14/20 13:49 [facility] (Rec: 01/14/20 14:15 [facility] [id number]) OT Gross Range of Motion Upper Extremity Range of Motion Assessment Within Functional Limits OT-Muscle Tone Assessment Muscle Tone WNL Yes OT Sensation Assessment Comments Summary Comments Pt states has less tingling in left hand now versus prior to his surgery. M9 OT- IP Assessment and Plan Start: 01/14/20 13:49 Freq: Status: Active Protocol: Document 01/15/20 10:16 [facility] (Rec: 01/15/20 10:25 [facility] [id number]) OT Summary Assessment and Plan Potential Rehabilitation Potential Excellent Analytic Complexity at Evaluation Low Summary OT Impairments Bathing Progress Towards Goals Progressing Toward Goals Assessment Summary Pt doing much better today and mostly independent for all adl and functional mobility needs. Pt just mainly needing cues to slow down and take his time. Pt to be going home with his to assist as needed. Goals Days to Meet Goals 1 Frequency of Treatment Frequency Of Treatment Once a Day Treatment Plan OT Treatment Plan ADL Training,Functional Mobility,Patient/Family Education,Discharge Planning Discharge Recommendations OT Discharge Recommendations Home with Assistance Transportation Needs at Discharge Private Vehicle
--- NOTE | 2020-01-15 09:22 | SLP.IPNOTE ---
Pt screened for dysphagia and dysphonia s/p ACDF surgery. Pt has no complaints of voice or swallow. Consumed breakfast without difficulty. Observed swallowing thin liquids without s/sx of dysphagia. Pt had bee provided written information by OT RE potential s/sx of dysphagia and dysphonia. He verbalized understanding and agreement with recommendation to notify PCP should symptoms arise. Formal swallow evaluation not warranted at this time.
[2020-01-15] MEDS: DOCUSATE 100 MG CAPSULE PO (09:44)
[2020-01-15] MEDS: ASPIRIN EC 81 MG TABLET PO (09:44)
[2020-01-15] MEDS: BENZOCAINE/MENTHOL 1 LOZ PKT 1 EACH PO (09:44)
[2020-01-15] MEDS: CELECOXIB 200 MG CAPSULE PO (09:44)
[2020-01-15] MEDS: METOPROLOL ER 25 MG TABLET PO (09:44)
--- NOTE | 2020-01-15 09:55 | PC.NURSE ---
Patient worked with PT and OT and cleared for discharge to home. His notified and will come to pick him up. Patient upright in chair without complaint other than a sore throat. Denies shortness of breath or trouble swallowing. Tolerating po's. Denies pain. Dressing to incision site remains CDI, with soft collar in place for comfort. Discharge instructions and home care handouts reviewed with patient and he states understanding and has no further questions or concerns at this time.
[2020-01-15] MEDS: HYDROCODONE/ACET 5/325 TABLET 1 TAB PO (10:29)
--- NOTE | 2020-01-15 10:39 | PC.NURSE ---
Discharge instructions reviewed again with patient and his once she arrived. She took prescriptions to pharmacy to be filled. IV removed intact. Patient has no further questions or concerns at this time. Instructed to call Dr. Mosqueda office with questions or concerns.
== END 2020-01-15 10:58 | disposition home or self-care (01) | DRG 472 ==
PROVIDERS: Admitting Provider Orthopaedic Surgery; Family Provider Family Medicine; Referring Provider Orthopaedic Surgery; Visit Provider Orthopaedic Surgery
PROC: 0RG20A0 Fusion of 2 or more Cervical Vertebral Joints with Interbody Fusion Device, Anterior Approach, Anterior Column, Open Approach (ICD-10-PCS; principal; 2020-01-14 09:45)
DX: M48.02 Spinal stenosis, cervical region (principal); M47.12 Other spondylosis with myelopathy, cervical region; I10 Essential (primary) hypertension
CPT/HCPCS: 72040; 76000; 82962; 97116; 97162; 97165; 97530; 97535; C1776; J0330; J0690; J1170; J2250; J2405; J2704; J3010

== ENCOUNTER → 2022-03-02 09:04 | Outpatient (CLI) | payer MEDICARE, OTHER, SELFPAY ==
[2022-01-19 08:38] VITALS: BMI 28.3
[2022-03-02 11:26] LABS: COVID19 -Nasal RAPID Negative (Negative)
== END ==
PROVIDERS: Family Provider Family Medicine; PCP Family Medicine; Visit Provider Surgery
DX: Z20.822 Contact with and (suspected) exposure to COVID-19 (principal); Z01.812 Encounter for preprocedural laboratory examination
CPT/HCPCS: 87635; C9803

== ENCOUNTER 2022-03-03 12:22 | Day surgery (SDC) | payer MEDICARE, OTHER, SELFPAY ==
[2022-01-19 08:38] VITALS: BMI 28.3
--- NOTE | 2022-03-03 | PATH_ITS ---
[facility] Accession Number: [id number] No. of containers..02 Tissue . 01 Material submitted: . PART A: colon - TRANSVERSE COLON POLYP PART B: colon - DESCENDING COLON POLYP . 01 Diagnosis: A. Transverse Colon Polyp: Colonic mucosa with no diagnostic abnormality, consistent with polypoid redundancy. Negative for serrated lesion, dysplasia or malignancy. Additional step sections examined. . B. Descending Colon Polyp: Colonic mucosa with prominent benign lymphoid aggregate. Negative for serrated lesion, dysplasia or malignancy. MRV 03/09/2022 1410 Local . 01 Electronically signed: . Ken Hollis MD, PhD, Pathologist NPI- [id number] . 01 Gross description: . Part A: TRANSVERSE COLON POLYP: Received in formalin is 1 fragment(s) of hicks, soft tissue measuring 0.3 x 0.3 x 0.3 cm submitted entirely in 1 cassette(s) Part B: DESCENDING COLON POLYP: Received in formalin is 1 fragment(s) of hicks, soft tissue measuring 0.5 x 0.2 x 0.1 cm submitted entirely in 1 cassette(s) /DANIEL 03/04/2022 2343 Local . 01 Pathologist provided ICD-10: K63.5 . 01 CPT . 848195, [id number] Specimen Comment: A courtesy copy of this report has been sent to [phone] Performed at: 01 [facility] [address] [place] [address], [place], [place] [id number] MD Jesus Sidhu MD Phone: [phone]
[2022-03-03 12:51] VITALS: BP 162/95; PULSE 78; RESP 16; TEMP 36.2; O2SAT 98; BMI 27.0
[2022-03-03] MEDS: LACTATED RINGERS 1,000 ML 42 ML IV (12:59)
--- NOTE | 2022-03-03 13:30 | PM.HP.1 ---
History of Present Illness History of Present Illness Date Patient Seen: 03/03/22 Time Patient Seen: 13:30 Chief complaint: SCREENING COLONOSCOPY Narrative: Matt is here for colonoscopy. His last 1 was about 12 years ago here and was normal. He has no known family history of colon cancer. Patient History Medical History Elevated cholesterol Hearing loss HTN (hypertension) Melanoma (~2015) Numbness and tingling in left hand Tinnitus Surgical History (Updated 01/03/20 @ 12:08 by Ml Sosa RN) History of vasectomy Hx of appendectomy (~1965) Hx of hernia repair (~2010) Family & Social History Social History: household members spouse Tobacco & Substance use: Smoking Status Former smoker alcohol intake current alcohol intake frequency 0-2 drinks per day Substance Use Type does not use Meds Home Medications and Allergies Home Medications Medication Instructions Recorded Confirmed Type metoprolol succinate 25 mg 25 mg PO DAILY 01/03/20 01/14/20 History tablet,extended release 24 hr Allergies Allergy/AdvReac Type Severity Reaction Status Date / Time Ilhzmuj-LFU-HdX Reductase Allergy Intermediate Muscle Pain Verified 03/03/22 12:50 Inhibitor Exam Vital Signs (past 8 hours): - 03/03/22 12:51 Temperature 97.1 F L Pulse Rate 78 Respiratory Rate 16 Blood Pressure 162/95 H Pulse Oximetry 98 Oxygen Delivery Method Room Air Oxygen Delivery Method Room Air Const General: No acute distress Assessment & Plan Assessment and plan (1) Colon cancer screening: Status: Acute Plan We reviewed the risks and benefits of colonoscopy he would like to proceed Time Spent With Patient Critical Care time: I spent a total of [] minutes of critical care time on this patient's care today; this time is exclusive of procedural time.
--- NOTE | 2022-03-03 14:30 | PM.OP.COLON ---
Operative Date/Time/Diagnoses Date of procedure: 03/03/22 Time of procedure: 14:30 Pre-op diagnosis: Colon cancer screening Post-op diagnosis: same Procedure & Clinicians Study performed: Colonoscopy Same procedure as scheduled: Yes Surgeon: Ori Stafford Procedure Notes Procedure in detail: Surgeon: Ori Stafford MD Anesthesia: Dr. Dockery Procedure: The patient was brought to the endoscopy suite, placed in left lateral decubitus position. The patient was connected to monitoring devices. A time-out was performed. Sedation was administered. Once the patient was adequately sedated, a digital rectal exam was performed and was normal. The scope was then inserted and advanced to the cecum where the appendiceal orifice was identified and photographed. The scope was then slowly withdrawn over greater than 6 minutes. The mucosa was thoroughly inspected. There was a 3 mm polyp in the transverse colon removed with a cold snare and a 4 mm polyp in the descending colon removed with a cold snare. The scope was retroflexed in the rectum. No other abnormalities were seen. The scope was straightened and removed. The patient was awakened and brought to recovery. Scope withdrawal time: 10 minutes Sedation time: 14 minutes EBL: 2 mL Findings: 3 mm polyp in the transverse colon and 4 mm polyp in the descending colon Post-procedure Disposition: PACU
[2022-03-03 14:37] VITALS: BP 112/80; PULSE 79; RESP 16; TEMP 36.2; O2SAT 96
[2022-03-03 14:39] VITALS: BP 112/80; PULSE 83; RESP 16; TEMP 36.6; O2SAT 98
[2022-03-03 14:53] VITALS: BP 122/72; PULSE 78; RESP 16; TEMP 36.9; O2SAT 98
== END 2022-03-03 14:59 | disposition home or self-care (01) ==
PROVIDERS: Family Provider Family Medicine; PCP Family Medicine; Referring Provider Surgery; Visit Provider Surgery
PROC: 0DJD8ZZ Inspection of Lower Intestinal Tract, Via Natural or Artificial Opening Endoscopic (ICD-10-PCS; CPT 45378; principal; 2022-03-03 12:45)
DX: Z12.11 Encounter for screening for malignant neoplasm of colon (principal); K63.5 Polyp of colon
CPT/HCPCS: 45385; J2704; J3010

== ENCOUNTER 2022-06-11 05:56 | Emergency (ER) | payer MEDICARE, OTHER, SELFPAY ==
[2022-01-19 08:38] VITALS: BMI 28.3
[2022-06-11 06:07] VITALS: BP 174/95; PULSE 84; RESP 18; TEMP 37.2; O2SAT 97; BMI 27.3
--- NOTE | 2022-06-11 07:14 | ED_ITS ---
HPI - General Adult General Chief complaint: Abdominal Pain Stated complaint: Poss hernia Time Seen by Provider: 06/11/22 07:07 Source: patient Mode of arrival: Ambulatory History of Present Illness HPI narrative: Patient is a 66-year-old male who approximately 1 week ago started to feel a mass in his left upper quadrant. He went to his primary doctor. His primary doctor thought that he needed an ultrasound. They attempted to schedule an ultrasound but it was not going to be until the end of next week and so his primary doctor told him to come to the emergency department for a ?emergent ultrasound? of this mass. Patient has had no urinary symptoms. No change in bowel habits. No vomiting. No skin changes over the area. No trauma. Related Data Home Medications Medication Instructions Recorded Confirmed metoprolol succinate 25 mg 25 mg PO DAILY 01/03/20 01/14/20 tablet,extended release 24 hr Allergies Allergy/AdvReac Type Severity Reaction Status Date / Time [id number] Reductase Allergy Intermediate Muscle Pain Verified 03/03/22 12:50 Inhibitor Review of Systems Constitutional Constitutional: Reports system reviewed and no additional complaints, except as documented Gastrointestinal Gastrointestinal: Reports system reviewed and no additional complaints, except as documented Genitourinary Genitourinary: Reports system reviewed and no additional complaints, except as documented Integumentary/Breasts Skin/Breast: Reports system reviewed and no additional complaints, except as documented Patient History Medical History Elevated cholesterol Hearing loss HTN (hypertension) Melanoma (~2015) Numbness and tingling in left hand Tinnitus Surgical History (Updated 01/03/20 @ 12:08 by Ml Sosa RN) History of vasectomy Hx of appendectomy (~1965) Hx of hernia repair (~2010) Social History household members: spouse Smoking Status: Former smoker alcohol intake: current Smoking Status: Former smoker alcohol intake frequency: 0-2 drinks per day Alcohol type: wine Substance Use Type: does not use Exam Initial Vital Signs Initial Vital Signs: Vital Signs Temperature 98.9 F 06/11/22 06:07 Pulse Rate 84 06/11/22 06:07 Respiratory Rate 18 06/11/22 06:07 Blood Pressure 174/95 H 06/11/22 06:07 Pulse Oximetry 97 06/11/22 06:07 Oxygen Delivery Method Room Air 06/11/22 06:07 Const General: cooperative, comfortable and No ill appearing HENNM Head: normal to inspection and normocephalic GI Other: Patient does have a solid but soft mass in the left upper quadrant over the area where his spleen would be. It is somewhat tender to palpation. Rest of his abdomen is unremarkable. Skin Other: No skin changes over the area. Neuro General: patient alert, patient awake and moves all extremities Extrem General: capillary refill normal Course Orders Ordered: ED Orders 06/11/22 07:15 US abdomen limited Stat 06/11/22 08:21 CT abdomen pelvis w con Stat 06/11/22 08:33 Complete Blood Count AUTO DIFF Stat Comprehensive Metabolic Panel Stat Lipase Stat Urinalysis and Microscopic Stat Vital Signs Vital signs: Vital Signs - 8 hr 06/11/22 06:07 06/11/22 08:41 Temperature 98.9 F Pulse Rate 84 78 Respiratory Rate 18 18 Blood Pressure 174/95 H 180/70 H Pulse Oximetry 97 97 Oxygen Delivery Method Room Air Room Air Medical Decision Making Lab Data Lab results reviewed: Yes I reviewed the patient's lab results. 06/11/22 08:33 06/11/22 08:33 Labs: Lab Results 06/11/22 06/11/22 06/11/22 Range/Units 08:33 08:33 08:33 WBC 6.5 (4.5-11.0) X10^3/uL RBC 4.56 (4.5-5.9) X10^6/uL Hgb 14.7 (13.5-17.5) g/dL Hct 42.9 (41-53) % MCV 94.0 (80-100) fL MCH 32.1 (26-34) PG MCHC 34.2 (30-36) % RDW 13.3 (11.6-14.8) % Plt Count 274 (150-400) X10^3/uL Neut % (Auto) 47.6 L (50-75) % Lymph % (Auto) 39.4 (25-40) % [place] % (Auto) 9.2 (3-14) % Eos % (Auto) 3.0 (2-4) % Baso % (Auto) 0.8 (0-2) % Neut # (Auto) 3100 (1363-0017) /uL Lymph # (Auto) 2600 (2452-9315) /uL [place] # (Auto) 600 (0-900) /uL Eos # (Auto) 200 (0-450) /uL Baso # (Auto) 100 (0-100) /uL Sodium 138 (137-145) mmol/L Potassium 4.5 (3.4-5.1) mmol/L Chloride 104 (98-107) mmol/L Carbon Dioxide 27 (22-32) mmol/L BUN 26 H (9-20) mg/dL Creatinine 0.78 (0.66-1.25) mg/dL Estimated GFR > 60 (>60) mL/min BUN/Creatinine Ratio 33.3 H (6-22) Glucose 137 H (80-110) mg/dL Calcium 9.0 (8.4-10.2) mg/dL Total Bilirubin 0.5 (0.2-1.3) mg/dL AST 35 (17-59) IU/L ALT 38 (<50) IU/L Alkaline Phosphatase 82 (38-126) U/L Total Protein 7.5 (6.3-8.2) g/dL Albumin 4.3 (3.5-5.0) g/dL Globulin 3.2 (1.7-4.1) g/dL Albumin/Globulin Ratio 1.3 (1.0-2.8) Lipase 52 (23-300) U/L Urine Color Yellow Urine Appearance Clear Urine pH 6.0 (4.5-8.0) Ur Specific [place] 1.025 (1.000-1.035) Urine Protein Negative (Negative) Urine Glucose (UA) Negative (Negative) g/dL Urine Ketones Trace H (NEGATIVE) Urine Occult Blood Negative (Negative) Urine Nitrate Negative (Negative) Urine Bilirubin Negative (NEGATIVE) Urine Urobilinogen 0.2 (0.2) E.U./dL Ur Leukocyte Esterase Negative (NEGATIVE) Urine RBC None seen (0-5/HPF) Urine WBC None seen (0-5/HPF) Amorphous Sediment 1+ Urine Bacteria None seen (None) Ur Culture Indicated? Cult not indicated Urine Dip Bedside Urine Glucose Negative Bedside Urine Bilirubin - Negative Bedside Urine Ketone - Negative Urine Specific [place] 1.020 Bedside Urine Occult Blood - Negative Bedside Urine pH 6.0 Bedside Urine Protein - Negative Bedside Urine Urobilinogen - Negative Bedside Urine Nitrite - Negative Bedside Urine Leukocytes - Negative Esterase Point of care testing: Urine Dip Bedside Urine Glucose Negative Bedside Urine Bilirubin - Negative Bedside Urine Ketone - Negative Urine Specific [place] 1.020 Bedside Urine Occult Blood - Negative Bedside Urine pH 6.0 Bedside Urine Protein - Negative Bedside Urine Urobilinogen - Negative Bedside Urine Nitrite - Negative Bedside Urine Leukocytes - Negative Esterase Imaging Data US - abdomen: Radiologist's Impression: PROCEDURE: US ABDOMEN LIMITED ? INDICATIONS:? LEFT LOWER QUADRANT MASS - LATERAL/INFERIOR TO UMBILICUS ? TECHNIQUE:? Real-time focused scanning was performed of the abdomen, with image documentation.? ? COMPARISON:? None. ? FINDINGS:? Scanning is performed at the area of clinical concern involving the left lower quadrant, lateral and inferior to the umbilicus. ? At this site, there is a complex, heterogeneous collection with a mild degree of increased vascularity.? Cystic and solid elements are seen.? This focus is noncompressible and does not change with Valsalva maneuver.? It measures 2.9 x 0 2.9 x 1.9 cm. ? ? IMPRESSION:? Nonspecific focus seen at the area of clinical concern, which may be related to a hernia, although no change is seen with Valsalva maneuver.? Differential diagnosis includes a complex lipoma. ? The scheduled CT examination is expected to provide additional diagnostic information. CT scan - abdomen/pelvis: Radiologist's Impression: PROCEDURE:? CT ABDOMEN PELVIS W CON ? INDICATIONS:? L side abd mass ? TECHNIQUE:? After the administration of oral and IV contrast, axial sections were acquired from the lung bases to the pubic symphysis.? Coronal and sagittal reformats were performed.? For radiation dose reduction, the following was used:? automated exposure control, adjustment of mA and/or kV according to patient size. ? COMPARISON:? None. ? FINDINGS:? Image quality:? Excellent.? ? Lung bases:? Unremarkable.? ? Heart:? No significant findings. ? ? ABDOMEN: Liver:? Hepatic steatosis is present. Gallbladder:? Unremarkable.? ? Biliary ducts:? Unremarkable.? ? Pancreas:? Unremarkable.? ? Spleen:? Unremarkable.? ? Adrenal Glands:? Unremarkable.? ? Kidneys and Ureters:? Simple left renal cyst. ? Stomach and Bowel:? Stomach, small bowel loops, and colon are nonobstructive.? There is a focal loop of descending colon with inflammatory change and mild thickening.? Diverticula are present. Peritoneum:? No abnormal intraperitoneal fluid.? No free air.? ? Ventral Wall: ? No hernia.? Abdominal Nodes:? No retroperitoneal or mesenteric adenopathy by size criteria.? Vessels:? Aorta and inferior vena cava are normal in size.? ? PELVIS: Pelvic Organs:? Unremarkable.? ? Bladder:? Unremarkable.? ? Pelvic Nodes: No enlarged lymph nodes.? Miscellaneous: No inguinal hernias are seen. ? ? ? Bones:? Unremarkable.? IMPRESSION:? ? Focal loop of descending colon with thickening and inflammatory change most consistent with colitis secondary to diverticulitis.? No abscess. ? Hepatic steatosis.? MDM Narrative Medical decision making narrative: Patient did have a palpable mass in his left abdomen that did not seem to be all that uncomfortable. He is not had any changes in his bowel movements. The ultrasound was somewhat inconclusive. Potentially hernia or potentially lipoma. The CT scan did not show any signs of a hernia however he was lying flat for the CT scan he potentially could have self reduced. I did discuss this with him. The CT scan did not C lipoma. I have low suspicion for abscess. The CT scan also mixed some concern about a colitis/diverticulitis. His clinical exam today is not consistent with this. It does make me wonder somewhat if he had a hernia that self reduced causing the inflammation around the colon. Because clinically he does not have diverticulitis will not treat with any antibiotics. I will have the patient contact his primary doctor for follow-up who can review all of the workup done today. No further workup required here in the emergency department. He was given return precautions. He expressed understanding and agreement. Discharge Plan Departure Patient Disposition: Home Clinical Impression: Abdominal mass Instructions: DI for Abdominal Pain-Adult Activity Restrictions/Additional Instructions: Like we discussed your ultrasound and CT scan today are very reassuring although it does not definitively rule out the possibility of a hernia that has self reduced. I recommend that you contact your primary doctor for follow-up. He can see all of the workup we did here in the emergency department today. At that point a decision can be made as to whether or not a referral to see General surgery is warranted. Return to the emergency department for new or worsening symptoms. Prescriptions: No Action metoprolol succinate 25 mg Tablet Extended Release 24 Hr 25 mg PO DAILY Referrals: Bandar Andrew MD [Primary Care Provider] - Stand Alone Forms: Patient Portal/API
--- NOTE | 2022-06-11 07:15 | DI.US.S_ITS ---
PROCEDURE: US ABDOMEN LIMITED INDICATIONS: LEFT LOWER QUADRANT MASS - LATERAL/INFERIOR TO UMBILICUS TECHNIQUE: Real-time focused scanning was performed of the abdomen, with image documentation. COMPARISON: None. FINDINGS: Scanning is performed at the area of clinical concern involving the left lower quadrant, lateral and inferior to the umbilicus. At this site, there is a complex, heterogeneous collection with a mild degree of increased vascularity. Cystic and solid elements are seen. This focus is noncompressible and does not change with Valsalva maneuver. It measures 2.9 x 0 2.9 x 1.9 cm. IMPRESSION: Nonspecific focus seen at the area of clinical concern, which may be related to a hernia, although no change is seen with Valsalva maneuver. Differential diagnosis includes a complex lipoma. The scheduled CT examination is expected to provide additional diagnostic information. Dictated by: Eulalio Kellogg M.D. on 06/11/2022 at 7:59 Approved by: Eulalio Kellogg M.D. on 06/11/2022 at 8:01
--- NOTE | 2022-06-11 08:21 | DI.CT.S_ITS ---
PROCEDURE: CT ABDOMEN PELVIS W CON INDICATIONS: L side abd mass TECHNIQUE: After the administration of oral and IV contrast, axial sections were acquired from the lung bases to the pubic symphysis. Coronal and sagittal reformats were performed. For radiation dose reduction, the following was used: automated exposure control, adjustment of mA and/or kV according to patient size. COMPARISON: None. FINDINGS: Image quality: Excellent. Lung bases: Unremarkable. Heart: No significant findings. ABDOMEN: Liver: Hepatic steatosis is present. Gallbladder: Unremarkable. Biliary ducts: Unremarkable. Pancreas: Unremarkable. Spleen: Unremarkable. Adrenal Glands: Unremarkable. Kidneys and Ureters: Simple left renal cyst. Stomach and Bowel: Stomach, small bowel loops, and colon are nonobstructive. There is a focal loop of descending colon with inflammatory change and mild thickening. Diverticula are present. Peritoneum: No abnormal intraperitoneal fluid. No free air. Ventral Wall: No hernia. Abdominal Nodes: No retroperitoneal or mesenteric adenopathy by size criteria. Vessels: Aorta and inferior vena cava are normal in size. PELVIS: Pelvic Organs: Unremarkable. Bladder: Unremarkable. Pelvic Nodes: No enlarged lymph nodes. Miscellaneous: No inguinal hernias are seen. Bones: Unremarkable. IMPRESSION: Focal loop of descending colon with thickening and inflammatory change most consistent with colitis secondary to diverticulitis. No abscess. Hepatic steatosis. Dictated by: Deanna Lopez M.D. on 06/11/2022 at 10:15 Approved by: Deanna Lopez M.D. on 06/11/2022 at 10:19
[2022-06-11 08:41] VITALS: BP 180/70; PULSE 78; RESP 18; O2SAT 97
[2022-06-11 08:59] LABS: Add Manual Diff / Slide Review NO; Basophils Absolute Auto 100 /uL (0-100); Basophils Percent Auto 0.8 % (0-2); Eosinophils Absolute Auto 200 /uL (0-450); Hematocrit 42.9 % (41-53); Hemoglobin 14.7 g/dL (13.5-17.5); Lymphocytes Absolute Auto 2600 /uL (1100-4500); Lymphocytes Percent Auto 39.4 % (25-40); Mean Corpuscular HGB Conc 34.2 % (30-36); Mean Corpuscular Hemoglobin 32.1 PG (26-34); Monocytes Absolute Auto 600 /uL (0-900); Monocytes Percent Auto 9.2 % (3-14); Neutrophils Absolute Auto 3100 /uL (1500-7000); Neutrophils Percent Auto 47.6 % (50-75); Platelet Count 274 X10^3/uL (150-400); Red Blood Cell Count 4.56 X10^6/uL (4.5-5.9); Red Cell Distribution Width 13.3 % (11.6-14.8); White Blood Cell Count 6.5 X10^3/uL (4.5-11.0)
[2022-06-11 09:00] LABS: Appearance Urine UA CLEAR; Bilirubin Urine UA NEGATIVE (NEGATIVE); Color Urine UA YELLOW; Glucose Urine UA NEGATIVE (Negative); Ketones Urine UA TRACE (NEGATIVE); Leukocyte Esterase Urine UA NEGATIVE (NEGATIVE); Nitrite Urine UA NEGATIVE (Negative); Occult Blood Urine UA NEGATIVE (Negative); Protein Urine UA NEGATIVE (Negative); Specific Gravity Urine UA 1.025 (1.000-1.035); Urobilinogen Urine UA 0.2 E.U./dL (0.2)
[2022-06-11 09:06] LABS: Alanine Aminotransferase 38 IU/L (<50); Albumin 4.3 g/dL (3.5-5.0); Albumin Globulin Ratio 1.3 (1.0-2.8); Alkaline Phosphatase 82 U/L (38-126); Aspartate Aminotransferase 35 IU/L (17-59); BUN Creatinine Ratio 33.3 (6-22); Bilirubin Total 0.5 mg/dL (0.2-1.3); Blood Urea Nitrogen 26 mg/dL (9-20); Carbon Dioxide 27 mmol/L (22-32); Chloride 104 mmol/L (98-107); Estimated Glomerular Filt Rate > 60 mL/min (>60); Globulin 3.2 g/dL (1.7-4.1); Glucose 137 mg/dL (80-110); HEMOLYSIS < 15 (0-50); Lipase 52 U/L (23-300); Potassium 4.5 mmol/L (3.4-5.1); Sodium 138 mmol/L (137-145); Total Protein 7.5 g/dL (6.3-8.2)
[2022-06-11 09:13] LABS: Amorphous Sediment Urine 1+; Bacteria Urine None Seen; Culture Indicated Urine Cult Not Indicated; RBC Urine None Seen (0-5/HPF); WBC Urine None Seen (0-5/HPF)
[2022-06-11 11:00] VITALS: BP 175/75; PULSE 78; RESP 18; O2SAT 97
== END 2022-06-11 11:02 | disposition home or self-care (01) ==
PROVIDERS: Emergency Provider Emergency Medicine; Family Provider Family Medicine; PCP Family Medicine
DX: R19.00 Intra-abdominal and pelvic swelling, mass and lump, unspecified site (principal)
CPT/HCPCS: 36415; 74177; 76705; 80053; 81001; 81003; 83690; 85025; 99283; 99284; Q9967

== ENCOUNTER → 2022-06-16 06:40 | Outpatient (CLI) | payer MEDICARE, OTHER, SELFPAY ==
[2022-01-19 08:38] VITALS: BMI 28.3
--- NOTE | 2022-06-16 | DI.US.S_ITS ---
PROCEDURE: US ABD AORTA ANEURYSM SCREEN INDICATIONS: SCREENING TECHNIQUE: Real-time scanning was performed of the aorta and proximal common iliac arteries, with image documentation. COMPARISON: [facility], CT, CT ABDOMEN PELVIS W CON, 06/11/2022, 9:49. FINDINGS: Aorta: Abdominal aorta is normal in caliber throughout its length. Atherosclerotic plaque. Proximal 2.1 cm Mid 1.6 cm Distal 1.3 cm Iliacs: Proximal common iliac arteries are normal in caliber. Right common iliac artery 1 cm Left common iliac artery 1 cm IMPRESSION: No abdominal aortic aneurysm. Dictated by: Tristin Prather M.D. on 06/16/2022 at 8:42 Approved by: Tristin Prather M.D. on 06/16/2022 at 8:43
== END ==
PROVIDERS: Family Provider Family Medicine; PCP Family Medicine; Referring Provider Family Medicine; Visit Provider Family Medicine
DX: M79.9 Soft tissue disorder, unspecified (principal); F17.200 Nicotine dependence, unspecified, uncomplicated; Z13.6 Encounter for screening for cardiovascular disorders
CPT/HCPCS: 76706

== ENCOUNTER → 2024-03-15 10:39 | Outpatient (CLI) | payer MEDICARE, OTHER, SELFPAY ==
[2022-01-19 08:38] VITALS: BMI 28.3
--- NOTE | 2024-03-15 10:41 | DI.US.S_ITS ---
ULTRASOUND OF RIGHT AXILLA: 03/15/2024 CLINICAL: Right axillary enlargment. Comparison: CT abdomen and pelvis . Color flow and real-time ultrasound of the right axilla were performed. Nguyễn scale images of the real-time examination were reviewed. There is a prominent lymph node with a circumscribed margin in the right axilla. This normal lymph node displays fatty hilum. No cortical thickening. This correlates with area of clinical concern. Color flow imaging demonstrates that there is no increase in vascularity. IMPRESSION: BENIGN There is no sonographic evidence of malignancy. Patient reports right axillary swelling. Prominent normal appearing lymph node is benign. No cortical thickening. Patient is advised to monitor for significant change. Clinical follow-up is recommended. Reported history of left thigh melanoma. If concerned for occult malignancy, Recommend CT scan with IV contrast. This exam was interpreted at Station ID: [id number]. Electronically Signed By: Tristin Prather M.D. [facility]/:03/15/2024 11:45:42 letter sent: Clinical Evaluation ACR BI-RADS Category 2: Benign
--- NOTE | 2024-03-15 10:42 | DI.RAD.S_ITS ---
PROCEDURE: XR CERVICAL SPINE 2V OR 3V INDICATIONS: SPINE PAIN TECHNIQUE: 3 view(s) of the cervical spine were acquired. COMPARISON: [facility], CR, XR CERVICAL SPINE 2V OR 3V, 01/14/2020, 10:27. FINDINGS: Bones: No fractures or dislocations to the T1 level. The lateral masses of C1 appear slightly asymmetric. No suspicious bony lesions. Anterior fusion is present C5-6 and C6-7. Hardware is intact without hardware fracture or periprosthetic lucency to suggest loosening. Alignment is stable. Cervical straightening is present. Overall disc space narrowing is present C4-5, C5-6 and C6-7. Soft tissues: No prevertebral soft tissue swelling. IMPRESSION: Anterior fusion as above. Slightly asymmetric appearance of the lateral masses suspected to be related to positioning. However, if concern persists, repeat view is recommended. Dictated by: Deanna Lopez M.D. on 03/16/2024 at 17:18 Approved by: Deanna Lopez M.D. on 03/16/2024 at 17:18
== END ==
PROVIDERS: Family Provider Family Medicine; PCP Family Medicine; Referring Provider Family Medicine; Visit Provider Family Medicine
DX: R22.31 Localized swelling, mass and lump, right upper limb (principal); M48.02 Spinal stenosis, cervical region; N63.31 Unspecified lump in axillary tail of the right breast; Z98.1 Arthrodesis status
CPT/HCPCS: 72040; 76882

== ENCOUNTER → 2024-04-01 08:30 | Outpatient (CLI) | payer MEDICARE, OTHER, SELFPAY ==
[2022-01-19 08:38] VITALS: BMI 28.3
--- NOTE | 2024-04-01 08:31 | DI.US.S_ITS ---
PROCEDURE: US BIOPSY LYMPH NODE INDICATIONS: mass of right axilla TECHNIQUE: The indications, alternatives, benefits, risks, and complications of the procedure were explained to the patient. Written informed consent was obtained and placed in the chart. Real-time sonography was utilized to choose the site for percutaneous lymph node sampling. The skin was prepped and draped in the usual sterile fashion. 1% lidocaine was infiltrated down to the site of interest. A coaxial needle was then advanced into the site of interest under direct sonographic visualization. A biopsy apparatus was then utilized, and core biopsies were obtained. The needle was then withdrawn; a bandage was applied to the biopsy site. COMPARISON: [facility], US, US AXILLARY ONLY RT, 03/15/2024, 10:57. FINDINGS: Biopsy site(s): Right axillary palpable abnormality. Needle: 18 gauge Muzui core biopsy Number of passes: 6 Medications: 1% lidocaine for local anaesthesia. Complications: None. IMPRESSION: Successful ultrasound-guided right axillary ill-defined mass biopsy, with pathology results pending. Note is made of patient's history of melanoma and decision was mutually made to proceed with biopsy. The lesion on ultrasound was very ill-defined, visible clinically when the patient was sitting up, but not lying down. This is not definitely a lymph node. Lesion was targeted initially using clinical palpation. When tissue was extracted from the biopsy device, fragmented tissue with heterogeneous dark staining was seen. This was sent in formalin and RPMI Dictated by: King Kingsley M.D. on 04/01/2024 at 10:22 Approved by: King Kingsley M.D. on 04/01/2024 at 10:25
--- NOTE | 2024-04-01 09:49 | PATH_ITS ---
[facility] Accession Number: [id number] No. of containers..01 Tissue . 01 Material submitted: . lymph node - RT AXILLA LYMPH NODE X5 . 01 Diagnosis: A: LYMPH NODE, RIGHT AXILLA, CORE BIOPSY: - Small core fragments of lymph node tissue, negative for malignancy, supported by flow cytometry. - See comment and microscopic description. [facility] 04/03/2024 1534 Local . 01 Comment: Concurrent flow cytometry study demonstrated NO monoclonal B-cell or definite aberrant T-cell populations (see flow cytometry report for details: [id number], 04/02/2024). Given the small sample volume, if clinical suspicious for a neoplastic process is high, excisional biopsy may be considered if clinically indicated. . 01 Electronically signed: . Nathan Sauceda MD, Pathologist NPI- [id number] . 01 Gross description: . RT AXILLA LYMPH NODE X5: Received in formalin are 5 fragment(s) of hicks, soft tissue measuring 0.2 x 0.1 x 0.1 cm to 1.2 x 0.1 x 0.1 cm submitted entirely in 1 cassette(s) /DANIEL 04/02/2024 0002 Local . 01 Microscopic: . - Histologic sections demonstrate small core fragments of lymphoid tissue consisting of small lymphocytes with primary follicles and focal crush artifact. Sinus histiocytosis and black pigment (favor tattoo pigment) are also present. - Immunohistochemical stains were indicated and performed with adequate controls. T-cells are present predominantly within interfollicular areas and are highlighted by CD3 and CD5 in a similar fashion, as well as BCL-2. B-cells are present predominantly within follicles and are positive for PAX5; while negative for CD5, and Cyclin D1. CD21 highlights follicular dendritic cell (RETIREMENT) meshworks within follicles. Germinal centers are absent, supported by negative CD10 and BCL-6 staining among B-cells. Ki-67 proliferation index is low, <5%; and does not show evidence germinal centers. Sections are negative for Hodgkin/RS-cells, granulomata, or metastatic carcinoma or melanoma, supported by negative VAL and Melan-A immunostains respectively. - The overall immunomorphologic pattern is consistent with benign reactive lymph node tissue. - As part of ongoing corporate quality engineer, this case was reviewed by Dr. Ollie Hoskins who agrees with the interpretation. Technical Note: The immunohistochemical stains reported were performed at [facility] ([address] [place], [place] [address] [address], [facility] [address]). This test was developed, and the performance characteristics were validated by [facility]. It has not been cleared or approved by the Food and Drug Administration. . 01 Pathologist provided ICD-10: R22.31, Z85.820 . 01 CPT . 600975, L28528, P87906 Specimen Comment: A courtesy copy of this report has been sent to [phone] Performed at: [address] [place] [address] [address], [place], [place] [id number] MD Jesus Sidhu MD Phone: [phone]
== END ==
PROVIDERS: Family Provider Family Medicine; PCP Family Medicine; Visit Provider Radiology Diagnostic Radiology
DX: R22.31 Localized swelling, mass and lump, right upper limb (principal); Z85.820 Personal history of malignant melanoma of skin
CPT/HCPCS: 38505; 76942

== ENCOUNTER → 2024-04-18 13:14 | Outpatient (CLI) | payer MEDICARE, OTHER, SELFPAY ==
[2022-01-19 08:38] VITALS: BMI 28.3
--- NOTE | 2024-04-18 13:15 | DI.CT.S_ITS ---
PROCEDURE: CT CHEST W CON INDICATIONS: MASS OF RIGHT AXILLA TECHNIQUE: After the administration of intravenous contrast, 5 mm thick sections acquired from the pulmonary apices to the posterior costophrenic angles. 1 mm axial lung, 5 mm thick coronal and sagittal reformats and 7 mm axial MIP were acquired. For radiation dose reduction, the following was used: automated exposure control, adjustment of mA and/or kV according to patient size. A CT surface marker was placed in the area of patient's current clinical concern right axilla. COMPARISON: [facility], BIOPSY LYMPH NODE, 04/01/2024, 8:53. [facility], US AXILLARY ONLY RT, 03/15/2024, 10:57. FINDINGS: Image quality: Diagnostic. Lower Neck: No enlarged lymph nodes. Thyroid: No thyroid nodules which require sonographic follow up, per consensus guidelines. Axillae: No enlarged lymph nodes. Chest Wall: Unremarkable. No identified enlarged lymph nodes at the right axilla. Bones: Unremarkable. Lungs and Pleura: No pneumothorax or pleural effusions. No consolidation or suspicious nodules. Heart: Heart size is normal. No pericardial effusion. Thoracic Vessels: The aorta and pulmonary arteries demonstrate normal size. Mediastinum and [place]: No enlarged lymph nodes. Esophagus: No wall thickening. No hiatal hernia. Upper Abdomen: Visualized upper abdomen solid organs and bowel loops appear normal. IMPRESSION: No adenopathy or other abnormality is found. Incidental note is made of mild focal ectasia of the posterior aortic arch as it transitions into the proximal descending thoracic aorta where maximal axial dimension measures 3.5 cm. No significant atherosclerotic calcifications, however. No evidence of prior dissection. This likely is a normal variant statistically. Dictated by: Theo Garcia M.D. on 04/19/2024 at 14:03 Approved by: Theo Garcia M.D. on 04/19/2024 at 14:10
--- NOTE | 2024-04-18 13:16 | DI.CT.S_ITS ---
PROCEDURE: CT CERVICAL SPINE WO CON INDICATIONS: SPINAL STENOSIS TECHNIQUE: Noncontrast 3 mm thick sections acquired from the skull base to the T4 level. Sagittal and coronal reformats were then constructed. For radiation dose reduction, the following was used: automated exposure control, adjustment of mA and/or kV according to patient size. COMPARISON: Merged With [facility], CR, XR CERVICAL SPINE 2V OR 3V, 03/15/2024, 10:46. FINDINGS: Image quality: Excellent. Bones: No acute fracture or subluxation. Status post C5-C6 and C6-C7 ACDF with intervertebral disc spacer placement. Mature fusion across the C5-C7 vertebral bodies. Mild facet and uncinate arthropathy at the bilateral C4-C5, C5-C6, C6-C7, and C7-T1 levels. Alignment: Minimal grade 1 anterolisthesis of C3 on C4 and C4 on C5. Otherwise, straightening of the cervical lordosis. Discs: The other intervertebral disc heights are preserved. Central canal: Although the epidural space is not well assessed on CT, there is no severe central canal stenosis. Neural foramina: Mild left C5-C6 and C7-T1 foraminal stenoses (5/23). Moderate-severe left foraminal stenosis at C6-C7. Otherwise, no severe foraminal stenosis. Prevertebral soft tissues: Mild bilateral common carotid bulb arterial calcifications (3/39). No prevertebral soft tissue edema. No pneumothorax in the lung apices. Thyroid gland within normal limits. No medial supraclavicular or bilateral cervical lymphadenopathy. IMPRESSION: 1. Status post C5-C7 ACDF without hardware complication. 2. Moderate-severe left foraminal stenosis at C6-C7. Please correlate with symptomatology in the corresponding dermatomal distribution. 3. No CT evidence of severe canal stenosis. Dictated by: Shane Ponce M.D. on 04/18/2024 at 21:03 Approved by: Shane Ponce M.D. on 04/18/2024 at 21:10
== END ==
PROVIDERS: Family Provider Family Medicine; PCP Family Medicine; Referring Provider Family Medicine; Visit Provider Family Medicine
DX: M48.02 Spinal stenosis, cervical region (principal); R22.31 Localized swelling, mass and lump, right upper limb; R22.2 Localized swelling, mass and lump, trunk; Z85.820 Personal history of malignant melanoma of skin; Z98.1 Arthrodesis status
CPT/HCPCS: 71260; 72125; Q9967